=== PATIENT | female | born 1950 | race American Indian/Alaskan Native ===

== ENCOUNTER → 2024-10-27 | Outpatient (CLI) | payer MEDICARE, SELFPAY ==
[2024-10-27 12:47] LABS: Collection Type, Urine Clean Catch
[2024-10-27 13:54] LABS: Basophils # (Auto) 0.1 Thou/mm3 (0.0-0.2); Basophils % (Auto) 1 % (0-2.5); Eosinophils # (Auto) 0.3 Thou/mm3 (0.0-0.5); Eosinophils % (Auto) 4 % (0-10); Hematocrit 42.2 % (36.0-46.0); Hemoglobin 14.2 g/dL (12.0-16.0); Immature Granulocytes % (Auto) 0 % (0-0); Immature Granulocytes Auto 0.03 Thou/mm3 (0.00-0.00); Lymphocytes # (Auto) 1.9 Thou/mm3 (1.0-4.8); Lymphocytes % (Auto) 24 % (10-50); Mean Corpuscular HGB Conc 33.6 g/dl (31.0-37.0); Mean Corpuscular Hemoglobin 30.7 pg (25.0-35.0); Mean Corpuscular Volume 91 fL (80-100); Monocytes # (Auto) 0.8 Thou/mm3 (0.0-0.8); Monocytes % (Auto) 10 % (0-12); Neutrophils # (Auto) 4.8 Thou/mm3 (1.8-7.7); Neutrophils % (Auto) 60 % (37-80); Nucleated Red Blood Cell % 0 /100 WBC (0); Platelet Count 214 Thou/mm3 (140-440); RDW Standard Deviation 47.1 fL (36.4-46.3); Red Blood Count 4.63 Miln/mm3 (4.00-5.20); White Blood Count 7.9 Thou/mm3 (3.6-11.0)
[2024-10-27 14:06] LABS: Follicle Stimulating Hormone 38.64 mIU/mL (See Note); Vitamin B12 328 pg/mL (211-911); Vitamin D 25 Hydroxy Total 26.3 ng/mL (7.3-40.2)
[2024-10-27 14:19] LABS: Alanine Aminotransferase 34 U/L (10-49); Albumin, Serum 4.2 gm/dL (3.4-4.8); Albumin/Globulin Ratio 1.6 (1.2-2.2); Alkaline Phosphatase 111 U/L (46-116); Anion Gap 7 (7-16); Aspartate Amino Transferase 31 U/L (0-34); BUN/Creatinine Ratio 31 Ratio (12-20); Bilirubin,Total 0.9 mg/dL (0.3-1.2); Blood Urea Nitrogen 22 mg/dL (9-23); Calcium 8.9 mg/dL (8.3-10.6); Calcium (Corrected) 8.9 mg/dL (8.5-10.1); Carbon Dioxide 24.8 mMol/L (20.0-31.0); Cardiac Risk Estimate 4.3 RATIO (3.7-5.6); Chloride 109 mMol/L (98-107); Cholesterol 198 mg/dL (132-200); Creatinine (Component) 0.7 mg/dL (0.6-1.3); Globulin 2.7 gm/dL (2.3-3.5); Glucose 100 mg/dL (74-106); HDL Cholesterol 46 mg/dL (40-60); LDL Cholesterol,Calculated 119 mg/dL (0-130); Osmolality,Calculated 284 (275-295); Potassium 4.2 mMol/L (3.4-5.1); Sodium 141 mMol/L (136-145); Thyroid Stimulating Hormone 2.08 uIU/mL (0.55-4.78); Total Protein 6.9 gm/dL (5.7-8.2); Triglycerides 165 mg/dL (30-150); Uric Acid 5.6 mg/dL (3.1-7.8); eGFR > 60 See Note
[2024-10-27 14:52] LABS: Bilirubin,Urine Negative (Negative); Blood,Urine Negative (Negative); Clarity,Urine Clear (Clear/Hazy); Color,Urine Lt-Yellow (Lt Yel-Yel); Glucose, Urine Negative (Negative); Ketones,Urine Negative (Negative); Leukocyte Esterase,Urine Negative (Negative); Nitrite,Urine Negative (Negative); PH,Urine 6.5 (5.0-7.0); Protein,Urine 1+ (Neg - Trace); RBC,Urine 1 /hpf (0-3); Specific Gravity,Urine 1.019 (1.001-1.035); Squamous Epithelial Cell,Urine 3 /hpf (0-5); Urobilinogen,Urine Negative mg/dL (0.0-1.0); WBC,Urine 1 /hpf (0-5)
[2024-10-27 15:06] LABS: Glucose Estimated Average 105 mg/dL (80-131); Hemoglobin A1C 5.3 % Hgb (4.8-6.0)
== END | disposition home or self-care (01) ==
LOC: COPL 11:33
PROVIDERS: PCP Internal Medicine; Referring Provider Internal Medicine; Visit Provider Internal Medicine
DX: Z00.00 Encounter for general adult medical examination without abnormal findings (principal); D51.9 Vitamin B12 deficiency anemia, unspecified; E55.9 Vitamin D deficiency, unspecified; E78.5 Hyperlipidemia, unspecified; I10 Essential (primary) hypertension
CPT/HCPCS: 36415; 80053; 80061; 81001; 82306; 82607; 83001; 83002; 83036; 84144; 84443; 84550; 85025

== ENCOUNTER 2024-11-25 20:38 | Inpatient (IN) | payer MEDICARE, SELFPAY ==
[2024-11-25 20:40] VITALS: BMI 38.8
[2024-11-25 21:02] VITALS: BP 186/116; PULSE 120; RESP 18; TEMP 37.1; O2SAT 96
--- NOTE | 2024-11-25 21:11 | PD.EDRME ---
Rapid Medical Screening Exam RME Arrival date/time: 11/25/24 20:38 This is a case of 74 year old female who came in with abdominal pain nausea vomiting diarrhea and blood in stool Chief Complaint: Nausea/Vomiting/Diarrhea Time Seen by Provider: 11/25/24 21:08 Vital signs: Vital Signs Temperature 98.7 F 11/25/24 21:02 Pulse Rate 120 H 11/25/24 21:02 Respiratory Rate 18 11/25/24 21:02 Blood Pressure 186/116 H 11/25/24 21:02 Pulse Oximetry (%) 96 11/25/24 21:02 Oxygen Delivery Method Room Air 11/25/24 21:02
[2024-11-25 21:55] LABS: Collection Type, Urine Clean Catch
[2024-11-25 22:07] LABS: Basophils # (Auto) 0.1 Thou/mm3 (0.0-0.2); Basophils % (Auto) 1 % (0-2.5); Eosinophils # (Auto) 0.4 Thou/mm3 (0.0-0.5); Eosinophils % (Auto) 4 % (0-10); Hematocrit 38.4 % (36.0-46.0); Hemoglobin 13.4 g/dL (12.0-16.0); Immature Granulocytes % (Auto) 0 % (0-0); Immature Granulocytes Auto 0.03 Thou/mm3 (0.00-0.00); Lymphocytes # (Auto) 2.4 Thou/mm3 (1.0-4.8); Lymphocytes % (Auto) 22 % (10-50); Mean Corpuscular HGB Conc 34.9 g/dl (31.0-37.0); Mean Corpuscular Hemoglobin 30.7 pg (25.0-35.0); Mean Corpuscular Volume 88 fL (80-100); Monocytes % (Auto) 10 % (0-12); Neutrophils # (Auto) 6.9 Thou/mm3 (1.8-7.7); Neutrophils % (Auto) 64 % (37-80); Nucleated Red Blood Cell % 0 /100 WBC (0); Platelet Count 207 Thou/mm3 (140-440); RDW Standard Deviation 44.4 fL (36.4-46.3); Red Blood Count 4.37 Miln/mm3 (4.00-5.20); White Blood Count 10.8 Thou/mm3 (3.6-11.0)
[2024-11-25 22:18] LABS: Bilirubin,Urine Negative (Negative); Blood,Urine 1+ (Negative); Calcium Oxalate Crystals,Urine 4+; Clarity,Urine Turbid (Clear/Hazy); Color,Urine Yellow (Lt Yel-Yel); Glucose, Urine Negative (Negative); Hyaline Casts,Urine 1 /hpf (0-1); Ketones,Urine 1+ (Negative); Leukocyte Esterase,Urine Positive (Negative); Nitrite,Urine Negative (Negative); Protein,Urine 1+ (Neg - Trace); RBC,Urine 1 /hpf (0-3); Specific Gravity,Urine 1.032 (1.001-1.035); Squamous Epithelial Cell,Urine 9 /hpf (0-5); WBC,Urine 3 /hpf (0-5)
[2024-11-25 22:20] LABS: Alanine Aminotransferase 40 U/L (10-49); Albumin, Serum 4.2 gm/dL (3.4-4.8); Albumin/Globulin Ratio 1.6 (1.2-2.2); Alkaline Phosphatase 144 U/L (46-116); Anion Gap 13 (7-16); Aspartate Amino Transferase 31 U/L (0-34); BUN/Creatinine Ratio 19 Ratio (12-20); Bilirubin,Total 0.4 mg/dL (0.3-1.2); Blood Urea Nitrogen 27 mg/dL (9-23); Calcium 9.5 mg/dL (8.3-10.6); Calcium (Corrected) 9.5 mg/dL (8.5-10.1); Carbon Dioxide 20.8 mMol/L (20.0-31.0); Chloride 106 mMol/L (98-107); Creatinine (Component) 1.4 mg/dL (0.6-1.3); Estimated Creatinine Clearance 36.4 mL/min (>60); Globulin 2.7 gm/dL (2.3-3.5); Glucose 112 mg/dL (74-106); Lipase 39 U/L (12-53); Osmolality,Calculated 285 (275-295); Potassium 4.2 mMol/L (3.4-5.1); Sodium 140 mMol/L (136-145); Total Protein 6.9 gm/dL (5.7-8.2); eGFR 40 See Note
[2024-11-26] VITALS (12 sets, daily range): BP systolic 91–189; BP diastolic 51–101; PULSE 85–115; RESP 14–19; TEMP 36.4–37.1; O2SAT 95–99
--- NOTE | 2024-11-26 00:57 | EDNOTE_ITS ---
Nausea/Vomit./Diarrhea-RME/HPI General Chief complaint: Nausea/Vomiting/Diarrhea Stated complaint: DIARRHEA WITH BLOOD X4 EPISODES Time Seen by Provider: 11/25/24 21:08 Arrival date/time: 11/25/24 20:38 Limitations: no limitations RME / HPI RME / HPI Narrative: 11/25/24 20:38 This is a case of 74 year old female who came in with abdominal pain nausea vomiting diarrhea and blood in stool Dr. Urias's Main ED Evaluation: 74yo female with a history of DM, HTN, HLD presents to the ED for a chief complaint of rectal bleeding. Patient states she started having bright rectal bleeding at 1700, reporting she's had 6 episodes. She denies any fever, chills, N/V, abdominal pain, back pain or any other associated symptoms. Denies any history of similar symptmos. Denies any familial history of colon CA. She denies taking any Motrin or Aspirin. She has had a routine colonoscopy in the past. NKA. Related Data Allergies Allergy/AdvReac Type Severity Reaction Status Date / Time No Known Allergies Allergy Unknown Uncoded 11/25/24 20:40 Review of Systems Review of Systems Systems Reviewed: All systems reviewed, normal except as documented Past Medical History Past Medical History CARDIAC: Positive Hypertension; Negative Cardiac Disorders, Myocardial Infarction, Cardiac Arrhythmia, Atrial Fibrillation, Angina, Heart Murmur, Coronary Artery Disease, Atherosclerotic Heart Disease, Peripheral Vascular Disease, Hypercholesterolemia, Aneurysm, Congestive Heart Failure, Congenital Heart Disease, Valvular Heart Disease, Rheumatic Fever, Cardiomyopathy, Edema, Pericarditis, Cellulitis, Deep Vein Thrombosis, Hypotension or Varicose Veins RESPIRATORY: Negative Chronic Obstructive Pulmonary Disease (COPD) GENITOURINARY: Negative Renal Disease ENDOCRINE: Negative Diabetes Mellitus Type 1 or Diabetes Mellitus Type 2 Surgical History SURGICAL: Negative Pacemaker Social History SMOKING STATUS: Former smoker ED Exam General Limitations: Present no limitations General appearance: Present alert, in no apparent distress and other (overweight) Head Head exam: Present atraumatic Eye Eye exam: Present normal appearance, PERRL and EOMI ENT ENT exam: Present normal exam, normal oropharynx and mucous membranes moist Neck Neck exam: Present normal inspection, full ROM and trachea midline Chest Chest inspection: Present normal inspection and symmetric chest wall rise Respiratory Respiratory exam: Present normal lung sounds bilaterally Cardiovascular Cardiovascular exam: Present normal rhythm, tachycardia and normal heart sounds Abdominal Exam Abdominal exam: Present soft; Absent distention or tenderness Rectal Exam Rectal exam: Present heme (+) stool (with bright red blood) Extremities Exam Extremities exam: Present normal inspection and full ROM Back Exam Back exam: Present normal inspection and full ROM; Absent CVA tenderness (R) or CVA tenderness (L) Neurological Exam Neurological exam: Present alert, oriented X3 and CN II-XII intact Psychiatric Psychiatric exam: Present normal affect and normal mood Skin Skin exam: Present warm, dry, intact and normal color; Absent other (jaundice) Course Quality Measures none Orders Category Date Time Status IV [Insert IV] STAT Care 11/26/24 01:14 Active CBC Stat Lab 11/25/24 21:22 Completed Comprehensive Metabolic Panel Stat Lab 11/25/24 21:22 Completed Lipase Stat Lab 11/25/24 21:22 Completed PT [Prothrombin Time with INR] Stat Lab 11/26/24 01:19 Completed PTT [Partial Thromboplastin Time] Stat Lab 11/26/24 01:19 Completed Type and Screen Stat Lab 11/26/24 01:19 Completed Urinalysis Stat Lab 11/25/24 21:33 Completed Vital Signs Vital signs: Vital Signs Temperature 98.7 F 11/25/24 21:02 Pulse Rate 120 H 11/25/24 21:02 Respiratory Rate 18 11/25/24 21:02 Blood Pressure 186/116 H 11/25/24 21:02 Pulse Oximetry (%) 96 11/25/24 21:02 Oxygen Delivery Method Room Air 11/25/24 21:02 Nausea/Vomiting/Diarrhea Patient data External records reviewed:: [facility] previous records (Per chart review, patient has no previous ED visits or admissions to this facility.) Clinical information provided by:: patient Social determinants that could affect healthcare access:: none Patient has the following chronic illnesses:: DM, HTN, HLD How is presenting disease/condition affected by chronic disease/condition?: uneffected by Evaluation data The following diagnostics were reviewed and interpreted by me:: lab results Lab and/or radiology exams considered but not ordered:: none Interpretation Summary: CBC is normal, Creatinine 1.4, BUN 27, Lipase is normal, UA is positive for a UTI, according to my interpretation. Medications / Prescriptions Medications / Prescriptions considered but not ordered:: none Medication administrations:: see above, if any Consultations Consultation(s) initiated? (list below): Yes Consultation #1 (Physician, Specialty, Details): Discussed case with attending Dr. Pulliam from Hospitalist service regarding admission. Discussed patients ED course, exam findings, labs, and radiology results. The Hospitalist agrees to accept the patient for admission. Time: 02:58 Diagnosis Nausea Differential Diagnosis: other (diverticulitis, lower GI bleed, dehydration) Most likely diagnosis given after review of the tests above:: lower GI bleed, acute renal failure Admission Indicated Admission indicated?: indicated Admission Request Was there a request for admission?: Yes Admission Attestation Admission request attestation: Discussed case with [] from Hospitalist service regarding admission. Discussed patients ED course, exam findings, labs, and radiology results. The Hospitalist [agrees,declines] to accept the patient for admission. Disposition Plan Disposition Plan: Admit Discharge Plan Plan Patient Disposition: Admit Acute Care w/in Hospital Patient condition on transfer: Stable Prescriptions/Referrals Referrals: No Primary/Family,Physician [Primary Care Provider] - In 1 week Problem List Clinical Impression: Lower GI bleed, Acute renal failure (ARF) Patient/Caregiver Discharge Instructions Print Language: Chadian Stand Alone Forms: Silvana Award Info., Patient Portal Info Letter
[2024-11-26 01:55] LABS: INR 1.1 (0.9-1.3); Partial Thromboplastin Time 27.7 Seconds (22.0-36.0); Prothrombin Time 11.8 Seconds (9.0-12.2)
--- NOTE | 2024-11-26 03:28 | ESHP_ITS ---
<Statement entered by Michael Pulliam MD - 11/26/24 06:40> I have discussed and was present for the essential components of the history, physical examination, diagnosis, and treatment plan with the resident. I agree with the patient's care as documented by the resident and amended herein by me. Michael Pulliam MD FACP. Documentation for date of: 11/26/24 HPI History of Present Illness Chief complaint: Lower GI Bleed History of present illness: Ms. Flores is a 74-year-old female with past medical history of osteoarthritis on diclofenac, untreated diabetes, untreated hypertension who presented to [facility] with a chief complaint of bright red blood per rectum. Patient states that today evening she began to have bowel movements that were soft and with significant amount of blood in the toilet bowl. She states that she had 4 episodes at home at which point she reached out to her primary care physician Dr. Quach who suggested that the patient come to the emergency department. Patient states that on the way to the emergency department she did have some lightheadedness but did not pass out or develop shortness of breath. Patient denies any ingestion of undercooked meats, abdominal pain, nausea vomiting, any family history of colon cancer, unexpected weight loss, chest pain, headache, or any other associated symptoms. She has experienced early satiety and decreased appetite but has not had significant weight loss. She endorses taking diclofenac 1-2 times daily for arthritis and has recently been prescribed vitamin D for mentation by her PCP. Patient has remote history of colonoscopy more than 10 years prior at which point she was found to have a single diverticuli but no history of polyps. Patient denies any smoking history or history of GERD. 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 Her younger son lives with her and she is able to perform activities of daily life without assistance. She denies any alcohol or tobacco use. Allergies: No known drug allergies Family history: No relevant past family medical history ED vitals: BP 186/116, pulse 120, RR 18, temp afebrile, O2 sat 96 on room air ED labs: WBC 10.8, hemoglobin 13.4, BUN 27, creatinine 1.4, GFR 40, glucose 112, alk phos 144. U/A: Turbid, 1+ protein, 1+ ketones, 1+ blood and 4+ calcium oxalate crystals. ED management: None Ed Imaging: None Patient will be admitted to observation on med/tele for lower GI bleed and initiated on GoLytely prep for colonoscopy. Review of Systems Review of Systems Systems Reviewed: All systems reviewed, normal except as documented Exam Vital Signs Temp Pulse Resp BP Pulse Ox O2 Del Method 98.6 F 85 14 155/92 H 99 Room Air 11/26/24 03:23 11/26/24 03:23 11/26/24 03:23 11/26/24 03:23 11/26/24 03:11/26/24 03:23 Narrative Exam GENERAL: Alert and oriented x 3. No acute distress. Well-nourished. EYES: EOMI. Anicteric. HEENT: Moist mucous membranes. No scleral icterus. No cervical lymphadenopathy. LUNGS: Clear to auscultation bilaterally. No accessory muscle use. CARDIOVASCULAR: Regular rate and rhythm. No murmur. No JVD. ABDOMEN: Soft, non-tender and non-distended. No palpable masses. EXTREMITIES: All 4 extremeties intact. No edema. Nontender. SKIN: No rashes or lesions. Warm. NEUROLOGIC: No focal neurological deficits. CN II-XII grossly intact, but not individually tested. PSYCHIATRIC: Cooperative. Appropriate mood and affect. Results: Labs 11/25/24 21:22 11/25/24 21:22 Labs: Short CBC 11/25/24 Range/Units 21:22 WBC 10.8 (3.6-11.0) Thou/mm3 Hgb 13.4 (12.0-16.0) g/dL Hct 38.4 (36.0-46.0) % Plt Count 207 (140-440) Thou/mm3 BMP 11/25/24 21:22 Sodium 140 Potassium 4.2 Chloride 106 Carbon Dioxide 20.8 BUN 27 H Creatinine 1.4 H Glucose 112 H Calcium 9.5 Liver Function 11/25/24 Range/Units 21:22 Total Bilirubin 0.4 (0.3-1.2) mg/dL AST 31 (0-34) U/L ALT 40 (10-49) U/L Alkaline Phosphatase 144 H (46-116) U/L Albumin 4.2 (3.4-4.8) gm/dL Urine 11/25/24 Range/Units 21:33 Urine Color Yellow (Lt Yel-Yel) Urine Clarity Turbid A (Clear/Hazy) Urine pH 6.0 (5.0-7.0) Ur Specific [place] 1.032 (1.001-1.035) Urine Protein 1+ A (Neg - Trace) Urine Glucose (UA) Negative (Negative) Quality Measures Quality Measures none Advance care planning discussed with:: patient Medications Home Medications and Allergies Allergies Allergy/AdvReac Type Severity Reaction Status Date / Time No Known Allergies Allergy Unknown Uncoded 11/25/24 20:40 Visit Medications Acetaminophen (Acetaminophen 325 Mg Tablet) 650 mg PO Q6H PRN PRN Reason: Fever >101.5 Stop: 12/26/24 03:22 Acetaminophen (Acetaminophen 325 Mg Tablet) 650 mg PO Q6H PRN PRN Reason: PAIN SCALE 1-3 (mild Stop: 12/26/24 03:22 Hydrocodone Bitart/Acetaminophen (Hydrocodone/Apap 5/325 Tablet) 1 tab PO Q4HR PRN PRN Reason: Pain Scale 4-10 Stop: 12/01/24 03:22 Dextrose (Dextrose 50%-Water Inj 50 Ml Syringe) 25 ml IV Q15MIN PRN PRN Reason: BG 50-70 responsive npo pt Stop: 12/26/24 03:26 Dextrose (Dextrose 50%-Water Inj 50 Ml Syringe) 50 ml IV Q15MIN PRN PRN Reason: BG <50 OR BG <70 & pt unresponsive Stop: 12/26/24 03:26 Glucagon (Glucagon Inj 1 Mg Vial) 1 mg IM Q15MIN PRN PRN Reason: BG <70, and no IV access Lactated Ringer's (Lactated Ringers) 1,000 mls @ 75 mls/hr IV .[id number] MALIK Stop: 12/26/24 03:29 Insulin Human Lispro (Insulin Lispro (Admelog) 1 Unit/0.01 Ml Unit) 0 unit SC Q6H MALIK; Protocol Stop: 12/26/24 03:29 Ondansetron HCl (Ondansetron Inj 2 Mg/Ml Inj 2 Ml) 4 mg IV Q6H PRN; Protocol PRN Reason: NAUSEA OR VOMITING Stop: 12/26/24 03:22 Pantoprazole Sodium (Pantoprazole Inj 40 Mg Vial) 40 mg IVP QDAY MALIK Stop: 12/26/24 08:59 Polyethylene Glycol/Electrolytes ([place]/Nahco3/Kenny/Peg (Golytely) 4,000 Ml Btl) 4,000 ml PO X1 ONE Stop: 11/26/24 03:24 Assessment & Plan Plan #Lower GI bleed #Bright red blood per rectum Patient has a history of using diclofenac daily for osteoarthritis No history of straining or difficulty with bowel movements. No previous history of internal hemorrhoids Remote history of colonoscopy more than 10 years prior No alarm symptoms: Mild early satiety Consult GI, initiate the patient on GoLytely prep Consult Dr. Quach who is patient's PCP Light IV fluid resuscitation due to LLOYD and GoLytely prep with lactated Ringer's SCDs for DVT prophylaxis Hold NSAIDs in the setting of GI bleed #LLOYD Likely prerenal in the setting of GI losses Light IV fluid hydration with LR at 75 cc an hour. #Type 2 diabetes Previous history of being prescribed insulin lancets on EMR Untreated currently so we will order A1c and initiate the patient on sliding scale insulin every 6 hours #Hypertension History of hypertension that is currently untreated Hydralazine as needed for systolic blood pressure over 180 Health Maintenance: DVT prophylaxis: SCDs GI prophylaxis: Protonix 40 IV daily Diet: Clear liquid diet Ambrose: Not indicated Lines: Peripheral IVs Supplemental O2: None CODE STATUS: Full code Disposition: Admitted to med/tele for management of lower GI bleed. Plan of care discussed with supervising attending Dr. Heraclio Dias M.D. PGY-3
--- NOTE | 2024-11-26 03:52 | PC.NURSE ---
Called Environmental Health Physician for Go-Katrinately. Medication not stocked in ER pyxis. Per House Sup to bring down medication to ER.
[2024-11-26] MEDS: RINGERS LACTATED 1000 ML 1,000 ML 75 ML IV ×2 (03:57→18:11)
[2024-11-26 04:38] LABS: Basophils # (Auto) 0.1 Thou/mm3 (0.0-0.2); Basophils % (Auto) 1 % (0-2.5); Eosinophils # (Auto) 0.3 Thou/mm3 (0.0-0.5); Eosinophils % (Auto) 4 % (0-10); Hematocrit 33.8 % (36.0-46.0); Hemoglobin 11.8 g/dL (12.0-16.0); Immature Granulocytes % (Auto) 0 % (0-0); Immature Granulocytes Auto 0.02 Thou/mm3 (0.00-0.00); Lymphocytes # (Auto) 2.5 Thou/mm3 (1.0-4.8); Lymphocytes % (Auto) 27 % (10-50); Mean Corpuscular HGB Conc 34.9 g/dl (31.0-37.0); Mean Corpuscular Hemoglobin 30.5 pg (25.0-35.0); Mean Corpuscular Volume 87 fL (80-100); Monocytes # (Auto) 0.9 Thou/mm3 (0.0-0.8); Monocytes % (Auto) 10 % (0-12); Neutrophils # (Auto) 5.4 Thou/mm3 (1.8-7.7); Neutrophils % (Auto) 59 % (37-80); Nucleated Red Blood Cell % 0 /100 WBC (0); Platelet Count 178 Thou/mm3 (140-440); RDW Standard Deviation 44.9 fL (36.4-46.3); Red Blood Count 3.87 Miln/mm3 (4.00-5.20); White Blood Count 9.2 Thou/mm3 (3.6-11.0)
[2024-11-26 04:51] LABS: Glucose Estimated Average 103 mg/dL (80-131); Hemoglobin A1C 5.2 % Hgb (4.8-6.0)
[2024-11-26 05:06] LABS: Alanine Aminotransferase 33 U/L (10-49); Albumin, Serum 3.8 gm/dL (3.4-4.8); Albumin/Globulin Ratio 1.6 (1.2-2.2); Alkaline Phosphatase 115 U/L (46-116); Anion Gap 10 (7-16); Aspartate Amino Transferase 23 U/L (0-34); BUN/Creatinine Ratio 34 Ratio (12-20); Bilirubin,Total 0.5 mg/dL (0.3-1.2); Blood Urea Nitrogen 31 mg/dL (9-23); Calcium 8.4 mg/dL (8.3-10.6); Calcium (Corrected) 8.6 mg/dL (8.5-10.1); Carbon Dioxide 21.9 mMol/L (20.0-31.0); Chloride 112 mMol/L (98-107); Creatinine (Component) 0.9 mg/dL (0.6-1.3); Estimated Creatinine Clearance 56.6 mL/min (>60); Globulin 2.4 gm/dL (2.3-3.5); Glucose 120 mg/dL (74-106); Magnesium 1.9 mg/dL (1.6-2.6); Osmolality,Calculated 294 (275-295); Phosphorous 3.6 mg/dL (2.4-5.1); Potassium 3.8 mMol/L (3.4-5.1); Sodium 144 mMol/L (136-145); Thyroid Stimulating Hormone 2.67 uIU/mL (0.55-4.78); Total Protein 6.2 gm/dL (5.7-8.2); eGFR > 60 See Note
[2024-11-26] MEDS: NA SU/NAHCO3/KC/PEG (Golytely) 4,000 ML BTL 4000 ML PO (05:15)
[2024-11-26] MEDS: RINGERS LACTATED 1000 ML 1,000 ML 999 ML IV (07:32)
--- NOTE | 2024-11-26 07:54 | PC.NURSE ---
After handoff report from [facility] nurse, I assisted nurse to help pateint back to bed after using the BSC. She was found on the commode with her eyes closed and moving her head as if she was light headed. She stated she felt dizzy and weak. WIth assistance of Nurse patient was help back to bed. VS were taken which were found to be 91/51, 94% RA, 99, 24. In the commode she had approx 800 ml of brown red stool with solid fecal material. The corner of the room was covered in blood from patient's attempt to use the restroom earlier. Pt now in bed, denies any abdominal pain, n/v. Dr. Quach was called immedately to notify regarding patient's current status. New orders received for bolus and upgrade to telemetry floor. 0745 Dr. Quach at bedside speaking with patient and assessing patient, at this time patient's bp is stable. pt reported no dizziness at this time.
[2024-11-26] MEDS: PANTOPRAZOLE INJ 40 MG VIAL IVP ×2 (08:05→21:53)
[2024-11-26 12:11] LABS: Hematocrit 29.1 % (36.0-46.0); Hemoglobin 10.3 g/dL (12.0-16.0)
--- NOTE | 2024-11-26 13:17 | ESPR_ITS ---
Documentation for date of: 11/26/24 Subjective Subjective Interval history: 74 y/o F with PMHx significant for osteoarthritis on diclofenac, untreated diabetes, untreated hypertension who presented to [facility] with a chief complaint of bright red blood per rectum. Patient states she began to have bowel movements that were soft and with significant amount of blood in the toilet bowl. Patient states that on the way to the emergency department she did have some lightheadedness but did not pass out or develop shortness of breath. Patient denies any ingestion of undercooked meats, abdominal pain, nausea vomiting, any family history of colon cancer, unexpected weight loss, chest pain, headache, or any other associated symptoms. She has experienced early satiety and decreased appetite but has not had significant weight loss. She endorses taking diclofenac 1-2 times daily for arthritis and has recently been prescribed vitamin D for mentation. Patient has remote history of colonoscopy more than 10 years prior at which point she was found to have a single diverticuli but no history of polyps. Patient denies any smoking history or history of GERD. ED vitals: BP 186/116, pulse 120, RR 18, temp afebrile, O2 sat 96 on room air ED labs: WBC 10.8, hemoglobin 13.4, BUN 27, creatinine 1.4, GFR 40, glucose 112, alk phos 144. U/A: Turbid, 1+ protein, 1+ ketones, 1+ blood and 4+ calcium oxalate crystals. ED management: None Ed Imaging: None Patient seen and examined at bedside, resting comfortably. Patient reports recently had significant bowel movements without bloody stool, confirmed by nurse. Denies fevers, chills, chest pain, shortness of breath, abdominal pain, fatigue. WBC 10.2, hemoglobin downtrending from 11.8-10.3. Sodium 144, potassium 3.8, bicarb 21.9, BUN 31, creatinine 0.9, EGFR greater than 60. Gave patient 1 L fluid bolus, will closely monitor hemoglobin. Patient taking GoLytely prep anticipation colonoscopy. GI consulted. Took over care from hospitalist team. Exam Vital Signs Temp Pulse Resp BP Pulse Ox O2 Del Method O2 Flow Rate 97.6 F 99 18 155/97 H 99 Nasal Cannula 2 11/26/24 11:42 11/26/24 12:00 11/26/24 11:42 11/26/24 11:42 11/26/24 11:42 11/26/24 11:42 11/26/24 11:42 Narrative Exam PE: Gen: Well-developed and well-nourished. HEENT: NCAT, PERRLA, EOMI, MMM, anicteric conjunctivae. CVS: normal S1 and S2. RRR. No M/R/G. Resp: CTA B/L. No rhonchi, rales, crackles or wheezing. Abd: soft, non-tender, non-distended. MSK: Good ROM in BUE & BLE. No edema or rash. Neuro: CN II-XII grossly intact. Strength 5/5 in BUE & BLE. Alert and oriented x3. Psych: appropriate mood and affect. Objective Labs 11/26/24 16:27 11/26/24 04:28 Labs: Laboratory Results - last 24 hr 11/25/24 11/25/24 11/26/24 21:22 21:33 01:19 WBC 10.8 RBC 4.37 Hgb 13.4 Hct 38.4 MCV 88 MCH 30.7 MCHC 34.9 RDW Std Deviation 44.4 Plt Count 207 Neut % (Auto) 64 Lymph % (Auto) 22 [place] % (Auto) 10 Eos % (Auto) 4 Baso % (Auto) 1 Neut # (Auto) 6.9 Lymph # (Auto) 2.4 [place] # (Auto) 1.0 H Eos # (Auto) 0.4 Baso # (Auto) 0.1 Immature Gran # (Auto) 0.03 H Absolute Nucleated RBC 0.00 Immature Gran % 0 Nucleated RBC % 0 PT 11.8 INR 1.1 APTT 27.7 Sodium 140 Potassium 4.2 Chloride 106 Carbon Dioxide 20.8 Anion Gap 13 BUN 27 H Creatinine 1.4 H Estim Creat Clear Calc 36.4 L eGFR 40 L BUN/Creatinine Ratio [address] Glu mg/dL Hemoglobin A1c Calculated Osmolality 285 Calcium 9.5 Corrected Calcium 9.5 Phosphorus Magnesium Total Bilirubin 0.4 AST 31 ALT 40 Alkaline Phosphatase 144 H Total Protein 6.9 Albumin 4.2 Globulin 2.7 Albumin/Globulin Ratio 1.6 Lipase 39 TSH Ur Collection Type Clean Catch Urine Color Yellow Urine Clarity Turbid A Urine pH 6.0 Ur Specific [place] 1.032 Urine Protein 1+ A Urine Glucose (UA) Negative Urine Ketones 1+ A Urine Blood 1+ A Urine Nitrite Negative Urine Bilirubin Negative Urine Urobilinogen (Auto) 2.0 Ur Leukocyte Esterase Positive Urine RBC 1 Urine WBC 3 Ur Squamous Epith Cells 9 H Calcium Oxalate Crystal 4+ A Urine Bacteria None Hyaline Casts 1 Blood Type O Positive Antibody Screen NEGATIVE Blood Bank Wristband ID Yes 11/26/24 11/26/24 04:28 11:49 WBC 9.2 RBC 3.87 L Hgb 11.8 L 10.3 L Hct 33.8 L 29.1 L MCV 87 MCH 30.5 MCHC 34.9 RDW Std Deviation 44.9 Plt Count 178 Neut % (Auto) 59 Lymph % (Auto) 27 [place] % (Auto) 10 Eos % (Auto) 4 Baso % (Auto) 1 Neut # (Auto) 5.4 Lymph # (Auto) 2.5 [place] # (Auto) 0.9 H Eos # (Auto) 0.3 Baso # (Auto) 0.1 Immature Gran # (Auto) 0.02 H Absolute Nucleated RBC 0.00 Immature Gran % 0 Nucleated RBC % 0 PT INR APTT Sodium 144 Potassium 3.8 Chloride 112 H Carbon Dioxide 21.9 Anion Gap 10 BUN 31 H Creatinine 0.9 D Estim Creat Clear Calc 56.6 L eGFR > 60 BUN/Creatinine Ratio 34 H Glucose [address] Glu mg/dL 103 Hemoglobin A1c 5.2 Calculated Osmolality 294 Calcium 8.4 Corrected Calcium 8.6 Phosphorus 3.6 Magnesium 1.9 Total Bilirubin 0.5 AST 23 ALT 33 Alkaline Phosphatase 115 D Total Protein 6.2 Albumin 3.8 Globulin 2.4 Albumin/Globulin Ratio 1.6 Lipase TSH 2.67 Ur Collection Type Urine Color Urine Clarity Urine pH Ur Specific [place] Urine Protein Urine Glucose (UA) Urine Ketones Urine Blood Urine Nitrite Urine Bilirubin Urine Urobilinogen (Auto) Ur Leukocyte Esterase Urine RBC Urine WBC Ur Squamous Epith Cells Calcium Oxalate Crystal Urine Bacteria Hyaline Casts Blood Type Antibody Screen Blood Bank Wristband ID Quality Measures Quality Measures VTE prophylaxis Advance care planning discussed with:: patient Assessment & Plan Assessment Current Active Medications: Generic Name Dose Route Start Last Admin Trade Name Freq PRN Reason Stop Dose Admin Acetaminophen 650 mg 11/26/24 03:23 Acetaminophen 325 Mg Tablet PO 12/26/24 03:22 Q6H PRN Fever >101.5 Acetaminophen 650 mg 11/26/24 03:23 Acetaminophen 325 Mg Tablet PO 12/26/24 03:22 Q6H PRN PAIN SCALE 1-3 (mild Hydrocodone Bitart/Acetaminophen 1 tab 11/26/24 03:23 Hydrocodone/Apap 5/325 Tablet PO 12/01/24 03:22 Q4HR PRN Pain Scale 4-10 Dextrose 25 ml 11/26/24 03:27 Dextrose 50%-Water Inj 50 Ml Syringe IV 12/26/24 03:26 Q15MIN PRN BG 50-70 responsive npo pt Dextrose 50 ml 11/26/24 03:27 Dextrose 50%-Water Inj 50 Ml Syringe IV 12/26/24 03:26 Q15MIN PRN BG <50 OR BG <70 & pt unresponsive Glucagon 1 mg 11/26/24 03:27 Glucagon Inj 1 Mg Vial IM Q15MIN PRN BG <70, and no IV access Hydralazine HCl 10 mg 11/26/24 03:28 Hydralazine Inj 20 Mg/Ml Vial IV 12/26/24 03:29 Q6H PRN SBP > 180 Lactated Ringer's 1,000 mls @ 75 mls/hr 11/26/24 03:30 11/26/24 08:02 Lactated Ringers IV 12/26/24 03:29 75 mls/hr .[id number] MALIK Infusion Insulin Human Lispro 0 unit 11/26/24 03:30 11/26/24 09:59 Insulin Lispro (Admelog) 1 Unit/0.01 Ml Unit SC 12/26/24 03:29 Not Given Q6H [facility] Protocol Ondansetron HCl 4 mg 11/26/24 03:23 Ondansetron Inj 2 Mg/Ml Inj 2 Ml IV 12/26/24 03:22 Q6H PRN NAUSEA OR VOMITING Protocol Pantoprazole Sodium 40 mg 11/26/24 08:00 11/26/24 08:06 Pantoprazole Inj 40 Mg Vial IVP 12/26/24 07:59 Not Given BID MALIK Plan 74 y/o F with PMHx significant for osteoarthritis on diclofenac, untreated diabetes, untreated hypertension who presented to [facility] with a chief complaint of bright red blood per rectum #Lower GI bleed Patient presented with complaint of hematochezia. Patient has a history of using diclofenac daily for osteoarthritis. No history of straining or difficulty with bowel movements. No previous history of internal hemorrhoids. Remote history of colonoscopy more than 10 years prior. No alarm symptoms: Mild early satiety. -GI consulted, appreciate recommendations -GoLytely prep in anticipation of colonoscopy -IVF: Lactated Ringer's at 75 mL/h -SCDs for DVT prophylaxis -Hold NSAIDs in the setting of GI bleed #LLOYD Likely prerenal in the setting of GI losses -IVF as above #Hypertension History of hypertension that is currently untreated -Hydralazine as needed for systolic blood pressure over 180 DVT prophylaxis: SCDs GI prophylaxis: Protonix 40 IV daily Diet: Clear liquid diet Lines: Peripheral IVs CODE STATUS: Full code Plan of care discussed with attending Dr. Quach. Bairon Casillas MD PGY?1 Attending Provider Attestation/Addendum Patient seen and examined with resident physician Dr. Bueno. Note reviewed, agree with findings and recommendations. Patient currently seen in emergency department Admitted with bright red blood per rectum. Took over the care from hospitalist team. Dr. Peoples was consulted. Serial H&H, IV fluids, Protonix ordered. Suspect diverticular bleed
--- NOTE | 2024-11-26 14:56 | PD.RESPRO ---
Documentation for date of: 11/26/24 Exam Vital Signs Temp Pulse Resp BP Pulse Ox O2 Del Method O2 Flow Rate 97.6 F 99 18 155/97 H 99 Nasal Cannula 2 11/26/24 11:42 11/26/24 12:00 11/26/24 11:42 11/26/24 11:42 11/26/24 11:42 11/26/24 11:42 11/26/24 11:42 Objective Labs 11/26/24 11:49 11/26/24 04:28 Labs: Laboratory Results - last 24 hr 11/25/24 11/25/24 11/26/24 21:22 21:33 01:19 WBC 10.8 RBC 4.37 Hgb 13.4 Hct 38.4 MCV 88 MCH 30.7 MCHC 34.9 RDW Std Deviation 44.4 Plt Count 207 Neut % (Auto) 64 Lymph % (Auto) 22 [place] % (Auto) 10 Eos % (Auto) 4 Baso % (Auto) 1 Neut # (Auto) 6.9 Lymph # (Auto) 2.4 [place] # (Auto) 1.0 H Eos # (Auto) 0.4 Baso # (Auto) 0.1 Immature Gran # (Auto) 0.03 H Absolute Nucleated RBC 0.00 Immature Gran % 0 Nucleated RBC % 0 PT 11.8 INR 1.1 APTT 27.7 Sodium 140 Potassium 4.2 Chloride 106 Carbon Dioxide 20.8 Anion Gap 13 BUN 27 H Creatinine 1.4 H Estim Creat Clear Calc 36.4 L eGFR 40 L BUN/Creatinine Ratio [address] Glu mg/dL Hemoglobin A1c Calculated Osmolality 285 Calcium 9.5 Corrected Calcium 9.5 Phosphorus Magnesium Total Bilirubin 0.4 AST 31 ALT 40 Alkaline Phosphatase 144 H Total Protein 6.9 Albumin 4.2 Globulin 2.7 Albumin/Globulin Ratio 1.6 Lipase 39 TSH Ur Collection Type Clean Catch Urine Color Yellow Urine Clarity Turbid A Urine pH 6.0 Ur Specific [place] 1.032 Urine Protein 1+ A Urine Glucose (UA) Negative Urine Ketones 1+ A Urine Blood 1+ A Urine Nitrite Negative Urine Bilirubin Negative Urine Urobilinogen (Auto) 2.0 Ur Leukocyte Esterase Positive Urine RBC 1 Urine WBC 3 Ur Squamous Epith Cells 9 H Calcium Oxalate [place] 4+ A Urine Bacteria None Hyaline Casts 1 Blood Type O Positive Antibody Screen NEGATIVE Blood Bank Wristband ID Yes 11/26/24 11/26/24 04:28 11:49 WBC 9.2 RBC 3.87 L Hgb 11.8 L 10.3 L Hct 33.8 L 29.1 L MCV 87 MCH 30.5 MCHC 34.9 RDW Std Deviation 44.9 Plt Count 178 Neut % (Auto) 59 Lymph % (Auto) 27 [place] % (Auto) 10 Eos % (Auto) 4 Baso % (Auto) 1 Neut # (Auto) 5.4 Lymph # (Auto) 2.5 [place] # (Auto) 0.9 H Eos # (Auto) 0.3 Baso # (Auto) 0.1 Immature Gran # (Auto) 0.02 H Absolute Nucleated RBC 0.00 Immature Gran % 0 Nucleated RBC % 0 PT INR APTT Sodium 144 Potassium 3.8 Chloride 112 H Carbon Dioxide 21.9 Anion Gap 10 BUN 31 H Creatinine 0.9 D Estim Creat Clear Calc 56.6 L eGFR > 60 BUN/Creatinine Ratio 34 H Glucose [address] Glu mg/dL 103 Hemoglobin A1c 5.2 Calculated Osmolality 294 Calcium 8.4 Corrected Calcium 8.6 Phosphorus 3.6 Magnesium 1.9 Total Bilirubin 0.5 AST 23 ALT 33 Alkaline Phosphatase 115 D Total Protein 6.2 Albumin 3.8 Globulin 2.4 Albumin/Globulin Ratio 1.6 Lipase TSH 2.67 Ur Collection Type Urine Color Urine Clarity Urine pH Ur Specific [place] Urine Protein Urine Glucose (UA) Urine Ketones Urine Blood Urine Nitrite Urine Bilirubin Urine Urobilinogen (Auto) Ur Leukocyte Esterase Urine RBC Urine WBC Ur Squamous Epith Cells Calcium Oxalate [place] Urine Bacteria Hyaline Casts Blood Type Antibody Screen Blood Bank Wristband ID Quality Measures Quality Measures VTE prophylaxis Assessment & Plan Assessment Current Active Medications: Generic Name Dose Route Start Last Admin Trade Name Freq PRN Reason Stop Dose Admin Acetaminophen 650 mg 11/26/24 03:23 Acetaminophen 325 Mg Tablet PO 12/26/24 03:22 Q6H PRN Fever >101.5 Acetaminophen 650 mg 11/26/24 03:23 Acetaminophen 325 Mg Tablet PO 12/26/24 03:22 Q6H PRN PAIN SCALE 1-3 (mild Hydrocodone Bitart/Acetaminophen 1 tab 11/26/24 03:23 Hydrocodone/Apap 5/325 Tablet PO 12/01/24 03:22 Q4HR PRN Pain Scale 4-10 Dextrose 25 ml 11/26/24 03:27 Dextrose 50%-Water Inj 50 Ml Syringe IV 12/26/24 03:26 Q15MIN PRN BG 50-70 responsive npo pt Dextrose 50 ml 11/26/24 03:27 Dextrose 50%-Water Inj 50 Ml Syringe IV 12/26/24 03:26 Q15MIN PRN BG <50 OR BG <70 & pt unresponsive Glucagon 1 mg 11/26/24 03:27 Glucagon Inj 1 Mg Vial IM Q15MIN PRN BG <70, and no IV access Hydralazine HCl 10 mg 11/26/24 03:28 Hydralazine Inj 20 Mg/Ml Vial IV 12/26/24 03:29 Q6H PRN SBP > 180 Lactated Ringer's 1,000 mls @ 75 mls/hr 11/26/24 03:30 11/26/24 08:02 Lactated Ringers IV 12/26/24 03:29 75 mls/hr .[id number] MALIK Infusion Insulin Human Lispro 0 unit 11/26/24 03:30 11/26/24 09:59 Insulin Lispro (Admelog) 1 Unit/0.01 Ml Unit SC 12/26/24 03:29 Not Given Q6H MALIK Protocol Ondansetron HCl 4 mg 11/26/24 03:23 Ondansetron Inj 2 Mg/Ml Inj 2 Ml IV 12/26/24 03:22 Q6H PRN NAUSEA OR VOMITING Protocol Pantoprazole Sodium 40 mg 11/26/24 08:00 11/26/24 08:06 Pantoprazole Inj 40 Mg Vial IVP 12/26/24 07:59 Not Given BID MALIK
--- NOTE | 2024-11-26 14:56 | PD.RESCONSUL ---
HPI Data of Consult Requesting Physician: Michael Pulliam MD Admitting Provider: Michael Pulliam MD Attending Provider: Michael Pulliam MD Primary Care Provider: Physician No Primary/Family Consult Narrative Reason for consult: bleeding per rectum History of present illness: 74-year-old female with significant past medical history of hypertension, diabetes, osteoarthritis presented to the hospital with chief complaints of bleeding per rectum since 1 day. Patient is apparently normal 1 day back. On the day of admission, patient felt mild abdominal discomfort following which she had a bowel movement and noticed myrtle blood in the stools without any associated abdominal pain. Patient still staying at home and 2 hours later patient still had mild abdominal discomfort and again found to have 2 bloody bowel movements following which she called her PCP who recommended her to visit emergency department for further evaluation. Patient denies previous history of constipation, blood or blackish discoloration of stools, recent weight loss, family history of colon cancer. Endorsed that she had colonoscopy more than 10 years ago which showed diverticulosis without any other significant abnormality. Denies usage of blood thinners and endorsed that she is taking diclofenac twice a day for arthritis ED course: Vitals at the time of admission are significant for elevated blood pressure 186/116 mmHg. Also found to have 3 bloody bowel movements in the ED and patient also developed mild dizziness. Labs showed hemoglobin 13.4, BUN 27, creatinine 1.4. Social history: stopped smoking and alcohol 30 years ago. Denies any other drug abuse. Gastroenterology is consulted in view of bleeding per rectum. 11/26/2024: Patient still complaining of bloody bowel movements and is currently taking GoLytely in view of colonoscopy scheduled later in the day. Denies any abdominal discomfort or pain. cc:: cc: Michael Pulliam MD Review of Systems Review of Systems Systems Reviewed: All systems reviewed, normal except as documented Past Medical History Past Medical History CARDIAC: Positive Hypertension; Negative Cardiac Disorders, Myocardial Infarction, Cardiac Arrhythmia, Atrial Fibrillation, Angina, Heart Murmur, Coronary Artery Disease, Atherosclerotic Heart Disease, Peripheral Vascular Disease, Hypercholesterolemia, Aneurysm, Congestive Heart Failure, Congenital Heart Disease, Valvular Heart Disease, Rheumatic Fever, Cardiomyopathy, Edema, Pericarditis, Cellulitis, Deep Vein Thrombosis, Hypotension or Varicose Veins RESPIRATORY: Negative Chronic Obstructive Pulmonary Disease (COPD) GENITOURINARY: Negative Renal Disease ENDOCRINE: Negative Diabetes Mellitus Type 1 or Diabetes Mellitus Type 2 Surgical History SURGICAL: Negative Pacemaker Social History SMOKING STATUS: Former smoker Exam Vital Signs Temp Pulse Resp BP Pulse Ox O2 Del Method O2 Flow Rate 97.6 F 99 18 155/97 H 99 Nasal Cannula 2 11/26/24 11:42 11/26/24 12:00 11/26/24 11:42 11/26/24 11:42 11/26/24 11:42 11/26/24 11:42 11/26/24 11:42 Narrative Exam General: Awake. obese HEENT: Normocephalic, atraumatic, mucous membranes moist. Heart: Regular rate and rhythm, no murmurs. Lungs: Clear to auscultation with no wheezing or crackles. Abdomen: Soft, nondistended, nontender, positive bowel sounds. ?No guarding or rebound tenderness. Neurologic: Alert and oriented x3, no gross neurological deficit, and patient able to move all 4 extremities. Extremities: No edema. Skin: No rash or ecchymoses. Results Labs 11/26/24 16:27 11/26/24 04:28 Labs: Short CBC 11/25/24 11/26/24 11/26/24 Range/Units 21:22 04:28 11:49 WBC 10.8 9.2 (3.6-11.0) Thou/mm3 Hgb 13.4 11.8 L 10.3 L (12.0-16.0) g/dL Hct 38.4 33.8 L 29.1 L (36.0-46.0) % Plt Count 207 178 (140-440) Thou/mm3 BMP 11/25/24 11/26/24 21:22 04:28 Sodium 140 144 Potassium 4.2 3.8 Chloride 106 112 H Carbon Dioxide 20.8 21.9 BUN 27 H 31 H Creatinine 1.4 H 0.9 D Glucose 112 H 120 H Calcium 9.5 8.4 Liver Function 11/25/24 11/26/24 Range/Units 21:22 04:28 Total Bilirubin 0.4 0.5 (0.3-1.2) mg/dL AST 31 23 (0-34) U/L ALT 40 33 (10-49) U/L Alkaline Phosphatase 144 H 115 D (46-116) U/L Albumin 4.2 3.8 (3.4-4.8) gm/dL Urine 11/25/24 Range/Units 21:33 Urine Color Yellow (Lt Yel-Yel) Urine Clarity Turbid A (Clear/Hazy) Urine pH 6.0 (5.0-7.0) Ur Specific [place] 1.032 (1.001-1.035) Urine Protein 1+ A (Neg - Trace) Urine Glucose (UA) Negative (Negative) Quality Measures Quality Measures VTE prophylaxis Advance care planning discussed with:: patient Medications Home Medications and Allergies Home Medications ?Medication ?Instructions ?Recorded ?Confirmed ?Type diclofenac sodium 75 mg mg PO 11/26/24 History tablet,delayed release ergocalciferol (vitamin D2) 1,250 11/26/24 History mcg (50,000 unit) capsule Allergies Allergy/AdvReac Type Severity Reaction Status Date / Time No Known Allergies Allergy Unknown Uncoded 11/26/24 08:03 Visit Medications Acetaminophen (Acetaminophen 325 Mg Tablet) 650 mg PO Q6H PRN PRN Reason: Fever >101.5 Stop: 12/26/24 03:22 Acetaminophen (Acetaminophen 325 Mg Tablet) 650 mg PO Q6H PRN PRN Reason: PAIN SCALE 1-3 (mild Stop: 12/26/24 03:22 Hydrocodone Bitart/Acetaminophen (Hydrocodone/Apap 5/325 Tablet) 1 tab PO Q4HR PRN PRN Reason: Pain Scale 4-10 Stop: 12/01/24 03:22 Dextrose (Dextrose 50%-Water Inj 50 Ml Syringe) 25 ml IV Q15MIN PRN PRN Reason: BG 50-70 responsive npo pt Stop: 12/26/24 03:26 Dextrose (Dextrose 50%-Water Inj 50 Ml Syringe) 50 ml IV Q15MIN PRN PRN Reason: BG <50 OR BG <70 & pt unresponsive Stop: 12/26/24 03:26 Glucagon (Glucagon Inj 1 Mg Vial) 1 mg IM Q15MIN PRN PRN Reason: BG <70, and no IV access Hydralazine HCl (Hydralazine Inj 20 Mg/Ml Vial) 10 mg IV Q6H PRN PRN Reason: SBP > 180 Stop: 12/26/24 03:29 Lactated Ringer's (Lactated Ringers) 1,000 mls @ 75 mls/hr IV .[id number] MALIK Stop: 12/26/24 03:29 Last Infusion: 11/26/24 08:02 Dose: 75 mls/hr Insulin Human Lispro (Insulin Lispro (Admelog) 1 Unit/0.01 Ml Unit) 0 unit SC Q6H MALIK; Protocol Stop: 12/26/24 03:29 Last Admin: 11/26/24 09:59 Dose: Not Given Ondansetron HCl (Ondansetron Inj 2 Mg/Ml Inj 2 Ml) 4 mg IV Q6H PRN; Protocol PRN Reason: NAUSEA OR VOMITING Stop: 12/26/24 03:22 Pantoprazole Sodium (Pantoprazole Inj 40 Mg Vial) 40 mg IVP BID MALIK Stop: 12/26/24 07:59 Last Admin: 11/26/24 08:06 Dose: Not Given Discontinued Medications Lactated Ringer's (Lactated Ringers) 1,000 mls @ 999 mls/hr IV .Q1H1M ONE Stop: 11/26/24 08:27 Last Infusion: 11/26/24 08:02 Dose: 0 mls/hr Pantoprazole Sodium (Pantoprazole Inj 40 Mg Vial) 40 mg IVP QDAY MALIK Stop: 12/26/24 08:59 Polyethylene Glycol/Electrolytes ([place]/Nahco3/Kenny/Peg (Golytely) 4,000 Ml Btl) 4,000 ml PO X1 ONE Stop: 11/26/24 03:24 Last Admin: 11/26/24 05:15 Dose: 4,000 ml Assessment & Plan Plan 74-year-old female with significant past medical history of hypertension, diabetes, osteoarthritis presented to the hospital with chief complaints of bleeding per rectum since 1 day and admitted for bleeding per rectum # Acute blood loss anemia # GI bleed # Likely lower GI bleed-diverticular bleed versus hemorrhoids, to R/O Malignancy, less likely - Presented to the hospital with chief complaints of bleeding per rectum - Denies associated abdominal pain, fever, mucus, recent travel - Had a history of colonoscopy more than 10 years ago and found to have diverticulosis - Hemoglobin dropped from 13.4 to 9.5 since the time of admission Plan - Started on GoLytely preparation, scheduled for colonoscopy on 11/26/2024 - Continue to watch for bleeding per rectum episodes - Monitor CBC and if Hb less than 7-recommended to give a blood transfusion #LLOYD #Hypertension -Rest of the medical conditions to be treated as per primary team Patient plan of care was discussed with the attending physician, Dr. Shelton Elias, PGY1 Attending Provider Attestation/Addendum 74 years old female evaluated examined and case discussed with the internal medicine resident Agree with the plan of care with Harper prep and performing colonoscopy Informed consent obtained for fiberoptic esophagogastroduodenoscopy with possible therapeutic intervention possible biopsy under intravenous moderate sedation Differential diagnosis most likely include diverticular source of bleeding although arteriovenous malformations large colonic polyp ischemic colitis could also be another possibility in this age group Thank you for the opportunity to participate in the care of this patient
[2024-11-26 16:38] LABS: Hematocrit 27.7 % (36.0-46.0); Hemoglobin 9.5 g/dL (12.0-16.0)
[2024-11-26 22:41] LABS: Hematocrit 27.5 % (36.0-46.0); Hemoglobin 9.5 g/dL (12.0-16.0)
[2024-11-27] VITALS (14 sets, daily range): BP systolic 120–189; BP diastolic 68–99; PULSE 86–103; RESP 12–22; TEMP 36.3–37.2; O2SAT 92–100; BMI 39.0
[2024-11-27 05:45] LABS: Basophils % (Auto) 0 % (0-2.5); Eosinophils # (Auto) 0.3 Thou/mm3 (0.0-0.5); Eosinophils % (Auto) 3 % (0-10); Hematocrit 25.7 % (36.0-46.0); Hemoglobin 8.9 g/dL (12.0-16.0); Immature Granulocytes % (Auto) 0 % (0-0); Immature Granulocytes Auto 0.03 Thou/mm3 (0.00-0.00); Lymphocytes # (Auto) 2.3 Thou/mm3 (1.0-4.8); Lymphocytes % (Auto) 25 % (10-50); Mean Corpuscular HGB Conc 34.6 g/dl (31.0-37.0); Mean Corpuscular Hemoglobin 31.1 pg (25.0-35.0); Mean Corpuscular Volume 90 fL (80-100); Monocytes % (Auto) 10 % (0-12); Neutrophils # (Auto) 5.7 Thou/mm3 (1.8-7.7); Neutrophils % (Auto) 62 % (37-80); Nucleated Red Blood Cell % 0 /100 WBC (0); Platelet Count 153 Thou/mm3 (140-440); RDW Standard Deviation 46.4 fL (36.4-46.3); Red Blood Count 2.86 Miln/mm3 (4.00-5.20); White Blood Count 9.2 Thou/mm3 (3.6-11.0)
[2024-11-27 06:24] LABS: Alanine Aminotransferase 30 U/L (10-49); Albumin, Serum 3.2 gm/dL (3.4-4.8); Albumin/Globulin Ratio 1.6 (1.2-2.2); Alkaline Phosphatase 68 U/L (46-116); Anion Gap 9 (7-16); Aspartate Amino Transferase 22 U/L (0-34); BUN/Creatinine Ratio 33 Ratio (12-20); Bilirubin,Total 0.7 mg/dL (0.3-1.2); Blood Urea Nitrogen 20 mg/dL (9-23); Calcium 8.2 mg/dL (8.3-10.6); Calcium (Corrected) 8.8 mg/dL (8.5-10.1); Carbon Dioxide 23.6 mMol/L (20.0-31.0); Chloride 110 mMol/L (98-107); Creatinine (Component) 0.6 mg/dL (0.6-1.3); Glucose 104 mg/dL (74-106); Osmolality,Calculated 287 (275-295); Potassium 3.6 mMol/L (3.4-5.1); Sodium 143 mMol/L (136-145); Total Protein 5.2 gm/dL (5.7-8.2); eGFR > 60 See Note
--- NOTE | 2024-11-27 07:33 | PC.NURSE ---
spoke with Dr. Quach to ask if she was okay with pt to be medtele, Dr. Quach agreed with transfer order. 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
[2024-11-27] MEDS: PANTOPRAZOLE INJ 40 MG VIAL IVP ×2 (08:34→22:02)
--- NOTE | 2024-11-27 09:28 | PC.SS ---
Initial assessment: patient is a 74 year old female admitted for lower GI bleed. Patient confirmed demographic information. Patient lives with her son, Meek. Patient identified her son, Dong as her emergency contact. Patient reports she is independent with ADL's, no use of DME reported. Patient followed by Dr. Quach for primary care. Patient pharmacy is [facility] in [place]. Patient to discharge home at time of discharge, family to assist with transportation home. No needs identified. Patient provided with community resource handout. D/c plan: Home Next of kin: sonDong
--- NOTE | 2024-11-27 09:53 | PC.NURSE ---
Pt given pamphlet regarding blood transfusions. Allowed time to read. Has had blood transfusion in the past. Questions asked and answered to satisfaction. Consent for blood transfusion obtained.
[2024-11-27] MEDS: ferumoxytoL (NON-ESRD) 510 MG in SODIUM CHLORIDE 0.9% 100 ML 234 MG IV (10:27)
[2024-11-27 12:07] LABS: Hemoglobin 8.4 g/dL (12.0-16.0)
--- NOTE | 2024-11-27 13:53 | ESPR_ITS ---
Documentation for date of: 11/27/24 Subjective Subjective Interval history: 74 y/o F with PMHx significant for osteoarthritis on diclofenac, untreated diabetes, untreated hypertension who presented to [facility] with a chief complaint of bright red blood per rectum. Patient states she began to have bowel movements that were soft and with significant amount of blood in the toilet bowl. Patient states that on the way to the emergency department she did have some lightheadedness but did not pass out or develop shortness of breath. Patient denies any ingestion of undercooked meats, abdominal pain, nausea vomiting, any family history of colon cancer, unexpected weight loss, chest pain, headache, or any other associated symptoms. She has experienced early satiety and decreased appetite but has not had significant weight loss. She endorses taking diclofenac 1-2 times daily for arthritis and has recently been prescribed vitamin D for mentation. Patient has remote history of colonoscopy more than 10 years prior at which point she was found to have a single diverticuli but no history of polyps. Patient denies any smoking history or history of GERD. ED vitals: BP 186/116, pulse 120, RR 18, temp afebrile, O2 sat 96 on room air ED labs: WBC 10.8, hemoglobin 13.4, BUN 27, creatinine 1.4, GFR 40, glucose 112, alk phos 144. U/A: Turbid, 1+ protein, 1+ ketones, 1+ blood and 4+ calcium oxalate crystals. ED management: None Ed Imaging: None Patient seen and examined at bedside, resting comfortably. Patient reports recently had significant bowel movements without bloody stool, confirmed by nurse. Denies fevers, chills, chest pain, shortness of breath, abdominal pain, fatigue. WBC 10.2, hemoglobin downtrending from 11.8-10.3. Sodium 144, potassium 3.8, bicarb 21.9, BUN 31, creatinine 0.9, EGFR greater than 60. Gave patient 1 L fluid bolus, will closely monitor hemoglobin. Patient taking GoLytely prep anticipation colonoscopy. GI consulted. Took over care from hospitalist team. 11/27/2024: Patient seen and examined sitting in chair, resting comfortably. Reports feeling well overall. Still passing blood clots in otherwise clear stool. Planning for colonoscopy today. Hg decreased to 8.4. Closely monitoring, will transfuse 2 units if decreased below 8.0. WBC 9.2, sodium 143, potassium 3.6, bicarb 23.6, BUN 20, creatinine 0.6, eGFR >60. Albumin decreased from 3.8 to 3.2. Continue IVF. Gave Flexaril x1 for back pain. Exam Vital Signs Temp Pulse Resp BP Pulse Ox O2 Del Method O2 Flow Rate 98.1 F 86 19 148/94 H 97 Room Air 2 11/27/24 12:00 11/27/24 12:00 11/27/24 12:00 11/27/24 12:11/27/24 12:11/27/24 12:11/26/24 11:42 Narrative Exam PE: Gen: Well-developed and well-nourished. HEENT: NCAT, PERRLA, EOMI, MMM, anicteric conjunctivae. CVS: normal S1 and S2. RRR. No M/R/G. Resp: CTA B/L. No rhonchi, rales, crackles or wheezing. Abd: soft, non-tender, non-distended. MSK: Good ROM in BUE & BLE. No edema or rash. Neuro: CN II-XII grossly intact. Strength 5/5 in BUE & BLE. Alert and oriented x3. Psych: appropriate mood and affect. Objective Labs 11/29/24 15:58 11/29/24 05:14 Labs: Laboratory Results - last 24 hr 11/26/24 11/26/24 11/26/24 01:19 16:27 22:30 WBC RBC Hgb 9.5 L 9.5 L Hct 27.7 L 27.5 L MCV MCH MCHC RDW Std Deviation Plt Count Neut % (Auto) Lymph % (Auto) [place] % (Auto) Eos % (Auto) Baso % (Auto) Neut # (Auto) Lymph # (Auto) [place] # (Auto) Eos # (Auto) Baso # (Auto) Immature Gran # (Auto) Absolute Nucleated RBC Immature Gran % Nucleated RBC % Sodium Potassium Chloride Carbon Dioxide Anion Gap BUN Creatinine Estim Creat Clear Calc eGFR BUN/Creatinine Ratio Glucose Calculated Osmolality Calcium Corrected Calcium Total Bilirubin AST ALT Alkaline Phosphatase Total Protein Albumin Globulin Albumin/Globulin Ratio Blood Type O Positive Antibody Screen NEGATIVE Crossmatch See Detail Blood Bank Wristband ID Yes 11/27/24 11/27/24 04:49 11:07 WBC 9.2 RBC 2.86 L Hgb 8.9 L 8.4 L Hct 25.7 L 25.0 L MCV 90 MCH 31.1 MCHC 34.6 RDW Std Deviation 46.4 H Plt Count 153 Neut % (Auto) 62 Lymph % (Auto) 25 [place] % (Auto) 10 Eos % (Auto) 3 Baso % (Auto) 0 Neut # (Auto) 5.7 Lymph # (Auto) 2.3 [place] # (Auto) 1.0 H Eos # (Auto) 0.3 Baso # (Auto) 0.0 Immature Gran # (Auto) 0.03 H Absolute Nucleated RBC 0.00 Immature Gran % 0 Nucleated RBC % 0 Sodium 143 Potassium 3.6 Chloride 110 H Carbon Dioxide 23.6 Anion Gap 9 BUN 20 Creatinine 0.6 Estim Creat Clear Calc 83.0 eGFR > 60 BUN/Creatinine Ratio 33 H Glucose 104 Calculated Osmolality 287 Calcium 8.2 L Corrected Calcium 8.8 Total Bilirubin 0.7 AST 22 ALT 30 Alkaline Phosphatase 68 D Total Protein 5.2 L Albumin 3.2 L D Globulin 2.0 L Albumin/Globulin Ratio 1.6 Blood Type Antibody Screen Crossmatch Blood Bank Wristband ID Quality Measures Quality Measures VTE prophylaxis Advance care planning discussed with:: patient Assessment & Plan Assessment Current Active Medications: Generic Name Dose Route Start Last Admin Trade Name Freq PRN Reason Stop Dose Admin Acetaminophen 650 mg 11/26/24 03:23 Acetaminophen 325 Mg Tablet PO 12/26/24 03:22 Q6H PRN Fever >101.5 Acetaminophen 650 mg 11/26/24 03:23 Acetaminophen 325 Mg Tablet PO 12/26/24 03:22 Q6H PRN PAIN SCALE 1-3 (mild Hydrocodone Bitart/Acetaminophen 1 tab 11/26/24 03:23 Hydrocodone/Apap 5/325 Tablet PO 12/01/24 03:22 Q4HR PRN Pain Scale 4-10 Dextrose 25 ml 11/26/24 03:27 Dextrose 50%-Water Inj 50 Ml Syringe IV 12/26/24 03:26 Q15MIN PRN BG 50-70 responsive npo pt Dextrose 50 ml 11/26/24 03:27 Dextrose 50%-Water Inj 50 Ml Syringe IV 12/26/24 03:26 Q15MIN PRN BG <50 OR BG <70 & pt unresponsive Glucagon 1 mg 11/26/24 03:27 Glucagon Inj 1 Mg Vial IM Q15MIN PRN BG <70, and no IV access Hydralazine HCl 10 mg 11/26/24 03:28 Hydralazine Inj 20 Mg/Ml Vial IV 12/26/24 03:29 Q6H PRN SBP > 180 Insulin Human Lispro 0 unit 11/27/24 12:00 11/27/24 12:13 Insulin Lispro (Admelog) 1 Unit/0.01 Ml Unit SC 12/27/24 11:59 Not Given Q6H MALIK Protocol Ondansetron HCl 4 mg 11/26/24 03:23 Ondansetron Inj 2 Mg/Ml Inj 2 Ml IV 12/26/24 03:22 Q6H PRN NAUSEA OR VOMITING Protocol Pantoprazole Sodium 40 mg 11/26/24 08:00 11/27/24 08:34 Pantoprazole Inj 40 Mg Vial IVP 12/26/24 07:59 40 mg BID MALIK Administration Plan 74 y/o F with PMHx significant for osteoarthritis on diclofenac, untreated diabetes, untreated hypertension who presented to [facility] with a chief complaint of bright red blood per rectum #Lower GI bleed #Acute anemia Patient presented with complaint of hematochezia. Patient has a history of using diclofenac daily for osteoarthritis. No history of straining or difficulty with bowel movements. No previous history of internal hemorrhoids. Remote history of colonoscopy more than 10 years prior. No alarm symptoms: Mild early satiety. Hemoglobin downtrending, will monitor closely. -GI consulted, appreciate recommendations -GoLytely prep in anticipation of colonoscopy -IVF: Lactated Ringer's at 75 mL/h -SCDs for DVT prophylaxis -Hold NSAIDs in the setting of GI bleed -Frequent Hg checks, transfuse if below 8.0 #LLOYD, improving Likely prerenal in the setting of GI losses. BUN elevated out of proportion, likely secondary to digested blood. -IVF as above #Hypertension History of hypertension that is currently untreated -Hydralazine as needed for systolic blood pressure over 180 DVT prophylaxis: SCDs GI prophylaxis: Protonix 40 IV daily Diet: Clear liquid diet Lines: Peripheral IVs CODE STATUS: Full code Plan of care discussed with attending Dr. Quach. Bairon Casillas MD PGY?1 Attending Provider Attestation/Addendum Patient seen and examined with resident physician Dr. Bueno. Note reviewed, agree with findings and recommendations. Patient going for colonoscopy today.
[2024-11-27 17:54] LABS: Hematocrit 24.9 % (36.0-46.0)
[2024-11-27 17:55] LABS: Hemoglobin 8.5 g/dL (12.0-16.0)
--- NOTE | 2024-11-27 21:18 | SUR.PHASEI ---
Pt. arrived to recovery via elvin, pt. is resting with eyes closed, responds to verbal commands, VSS, no c/o pain or nausea at this time, lung sounds clear, equal expansion azael., report received from Riya MAHONEY.
--- NOTE | 2024-11-27 21:38 | SUR.PHASEI ---
Called and gave report on pt. s/p procedure to Parth MAHONEY on M/S unit.
--- NOTE | 2024-11-27 21:45 | SUR.PHASEI ---
Pt. transferred to room 375 via SUSANNAH oconnor, no c/o pain or nausea at this time, Parth MAHONEY assumed care of pt.
[2024-11-28] VITALS (17 sets, daily range): BP systolic 105–184; BP diastolic 78–101; PULSE 83–105; RESP 15–22; TEMP 36.1–36.6; O2SAT 93–97; BMI 40.2
[2024-11-28 06:03] LABS: Basophils % (Auto) 0 % (0-2.5); Eosinophils # (Auto) 0.3 Thou/mm3 (0.0-0.5); Eosinophils % (Auto) 4 % (0-10); Hematocrit 22.5 % (36.0-46.0); Immature Granulocytes % (Auto) 0 % (0-0); Immature Granulocytes Auto 0.01 Thou/mm3 (0.00-0.00); Lymphocytes # (Auto) 1.9 Thou/mm3 (1.0-4.8); Lymphocytes % (Auto) 25 % (10-50); Mean Corpuscular HGB Conc 34.2 g/dl (31.0-37.0); Mean Corpuscular Hemoglobin 30.9 pg (25.0-35.0); Mean Corpuscular Volume 90 fL (80-100); Monocytes # (Auto) 0.8 Thou/mm3 (0.0-0.8); Monocytes % (Auto) 11 % (0-12); Neutrophils # (Auto) 4.5 Thou/mm3 (1.8-7.7); Neutrophils % (Auto) 60 % (37-80); Nucleated Red Blood Cell % 0 /100 WBC (0); Platelet Count 140 Thou/mm3 (140-440); RDW Standard Deviation 46.7 fL (36.4-46.3); Red Blood Count 2.49 Miln/mm3 (4.00-5.20); White Blood Count 7.5 Thou/mm3 (3.6-11.0)
[2024-11-28 06:09] LABS: Hemoglobin 7.7 g/dL (12.0-16.0)
[2024-11-28 06:33] LABS: Alanine Aminotransferase 28 U/L (10-49); Albumin, Serum 3.2 gm/dL (3.4-4.8); Albumin/Globulin Ratio 1.7 (1.2-2.2); Alkaline Phosphatase 69 U/L (46-116); Anion Gap 9 (7-16); Aspartate Amino Transferase 30 U/L (0-34); BUN/Creatinine Ratio 27 Ratio (12-20); Bilirubin,Total 0.7 mg/dL (0.3-1.2); Blood Urea Nitrogen 16 mg/dL (9-23); Calcium 7.8 mg/dL (8.3-10.6); Calcium (Corrected) 8.4 mg/dL (8.5-10.1); Carbon Dioxide 25.7 mMol/L (20.0-31.0); Chloride 112 mMol/L (98-107); Creatinine (Component) 0.6 mg/dL (0.6-1.3); Estimated Creatinine Clearance 84.5 mL/min (>60); Globulin 1.9 gm/dL (2.3-3.5); Glucose 92 mg/dL (74-106); Osmolality,Calculated 293 (275-295); Potassium 3.6 mMol/L (3.4-5.1); Sodium 147 mMol/L (136-145); Total Protein 5.1 gm/dL (5.7-8.2); eGFR > 60 See Note
[2024-11-28] MEDS: PANTOPRAZOLE INJ 40 MG VIAL IVP ×2 (09:03→21:20)
--- NOTE | 2024-11-28 11:47 | PD.NEPHPROG ---
Documentation for date of: 11/28/24 Subjective Subjective Interval history: 74 y/o F with PMHx significant for osteoarthritis on diclofenac, untreated diabetes, untreated hypertension who presented to [facility] with a chief complaint of bright red blood per rectum. Patient states she began to have bowel movements that were soft and with significant amount of blood in the toilet bowl. Patient states that on the way to the emergency department she did have some lightheadedness but did not pass out or develop shortness of breath. Patient denies any ingestion of undercooked meats, abdominal pain, nausea vomiting, any family history of colon cancer, unexpected weight loss, chest pain, headache, or any other associated symptoms. She has experienced early satiety and decreased appetite but has not had significant weight loss. She endorses taking diclofenac 1-2 times daily for arthritis and has recently been prescribed vitamin D for mentation. Patient has remote history of colonoscopy more than 10 years prior at which point she was found to have a single diverticuli but no history of polyps. Patient denies any smoking history or history of GERD. ED vitals: BP 186/116, pulse 120, RR 18, temp afebrile, O2 sat 96 on room air ED labs: WBC 10.8, hemoglobin 13.4, BUN 27, creatinine 1.4, GFR 40, glucose 112, alk phos 144. U/A: Turbid, 1+ protein, 1+ ketones, 1+ blood and 4+ calcium oxalate crystals. ED management: None Ed Imaging: None Patient seen and examined at bedside, resting comfortably. Patient reports recently had significant bowel movements without bloody stool, confirmed by nurse. Denies fevers, chills, chest pain, shortness of breath, abdominal pain, fatigue. WBC 10.2, hemoglobin downtrending from 11.8-10.3. Sodium 144, potassium 3.8, bicarb 21.9, BUN 31, creatinine 0.9, EGFR greater than 60. Gave patient 1 L fluid bolus, will closely monitor hemoglobin. Patient taking GoLytely prep anticipation colonoscopy. GI consulted. Took over care from hospitalist team. 11/27/2024: Patient seen and examined sitting in chair, resting comfortably. Reports feeling well overall. Still passing blood clots in otherwise clear stool. Planning for colonoscopy today. Hg decreased to 8.4. Closely monitoring, will transfuse 2 units if decreased below 8.0. WBC 9.2, sodium 143, potassium 3.6, bicarb 23.6, BUN 20, creatinine 0.6, eGFR >60. Albumin decreased from 3.8 to 3.2. Continue IVF. Gave Flexaril x1 for back pain. 11/28/2024 patient currently seen in medical floor. Resting comfortably. Hemoglobin significantly decreased. Will transfuse 2 units of blood. No myrtle bleeding. Colonoscopy showed extensive left diverticulosis with bleed. Dr. Peoples recommended surgical consult. Dr. Dr. Corley was called. Did not think patient needs emergency surgery. Watchful waiting. Review of Systems Review of Systems Narrative Review of Systems: CONSTITUTIONAL: Patient denies any fever, chills. HEENT: Denies any visual disturbances or hearing problems. CARDIOVASCULAR: Patient denies any chest pain, shortness of breath, swelling in the lower extremities. PULMONARY: Patient denies any shortness of breath, cough. GASTROINTESTINAL: Patient denies any abdominal pain, constipation, nausea, vomiting, diarrhea. + Blood in stools GENITOURINARY: Patient denies any urinary symptoms of burning or frequency or hematuria, denies any form in the urine. SKIN: Denies any rash. MUSCULOSKELETAL: Denies any muscular skeletal problems of joint pains. NEUROLOGICAL: Denies any neurological problems of strokes, seizures or confusion. Denies any memory problems. PSYCHIATRIC: Denies any depression or anxiety. LYMPHATICS : No lymphadenopathy Exam Vital Signs Temp Pulse Resp BP Pulse Ox O2 Del Method O2 Flow Rate 36.6 C 97 18 156/93 H 96 Room Air 3 11/28/24 11:26 11/28/24 11:26 11/28/24 07:45 11/28/24 11:26 11/28/24 07:45 11/28/24 07:45 11/27/24 21:14 Narrative Exam GENERAL APPEARANCE: Patient seems to be comfortable, adequately hydrated and nourished. HEENT: EOMI, PERRLA NECK: Neck supple, no JVD or bruit CARDIOVASCULAR: Heart regular, no murmurs LUNGS/CHEST: Chest clear to auscultation. No rales, rhonchi, wheezing ABDOMEN: Soft, nontender, nondistended. No masses. Normal bowel sounds. EXTREMITIES: No edema, clubbing or cyanosis. SKIN: Skin exam normal without any rashes MUSCULOSKELETAL: Musculoskeletal exam normal PSYCHIATRIC: Normal mood, affect LYMPHATICS: No lymphadenopathy noted NEUROLOGICAL : No neurological deficits Objective Labs 11/29/24 15:58 11/29/24 05:14 Labs: Laboratory Results - last 24 hr 11/26/24 11/27/24 11/27/24 01:19 11:07 15:15 WBC RBC Hgb 8.4 L 8.5 L Hct 25.0 L 24.9 L MCV MCH MCHC RDW Std Deviation Plt Count Neut % (Auto) Lymph % (Auto) Centre % (Auto) Eos % (Auto) Baso % (Auto) Neut # (Auto) Lymph # (Auto) Centre # (Auto) Eos # (Auto) Baso # (Auto) Immature Gran # (Auto) Absolute Nucleated RBC Immature Gran % Nucleated RBC % Sodium Potassium Chloride Carbon Dioxide Anion Gap BUN Creatinine Estim Creat Clear Calc eGFR BUN/Creatinine Ratio Glucose Calculated Osmolality Calcium Corrected Calcium Total Bilirubin AST ALT Alkaline Phosphatase Total Protein Albumin Globulin Albumin/Globulin Ratio Blood Type O Positive Antibody Screen NEGATIVE Crossmatch See Detail Blood Bank Wristband ID Yes 11/28/24 05:29 WBC 7.5 RBC 2.49 L Hgb 7.7 L Hct 22.5 L MCV 90 MCH 30.9 MCHC 34.2 RDW Std Deviation 46.7 H Plt Count 140 Neut % (Auto) 60 Lymph % (Auto) 25 Centre % (Auto) 11 Eos % (Auto) 4 Baso % (Auto) 0 Neut # (Auto) 4.5 Lymph # (Auto) 1.9 Centre # (Auto) 0.8 Eos # (Auto) 0.3 Baso # (Auto) 0.0 Immature Gran # (Auto) 0.01 H Absolute Nucleated RBC 0.00 Immature Gran % 0 Nucleated RBC % 0 Sodium 147 H Potassium 3.6 Chloride 112 H Carbon Dioxide 25.7 Anion Gap 9 BUN 16 Creatinine 0.6 Estim Creat Clear Calc 84.5 eGFR > 60 BUN/Creatinine Ratio 27 H Glucose 92 Calculated Osmolality 293 Calcium 7.8 L Corrected Calcium 8.4 L Total Bilirubin 0.7 AST 30 ALT 28 Alkaline Phosphatase 69 Total Protein 5.1 L Albumin 3.2 L Globulin 1.9 L Albumin/Globulin Ratio 1.7 Blood Type Antibody Screen Crossmatch Blood Bank Wristband ID Assessment & Plan Additional Assessment & Plan Additional Plan: 74 y/o F with PMHx significant for osteoarthritis on diclofenac, untreated diabetes, untreated hypertension who presented to [facility] with a chief complaint of bright red blood per rectum #Lower GI bleed #Acute anemia Patient presented with complaint of hematochezia. Patient has a history of using diclofenac daily for osteoarthritis. No history of straining or difficulty with bowel movements. No previous history of internal hemorrhoids. Remote history of colonoscopy more than 10 years prior. No alarm symptoms: Mild early satiety. Hemoglobin downtrending, will monitor closely. Status post colonoscopy with extensive diverticulosis and diverticular bleed. Surgical consultation with Dr. Corley recommended. Per Dr. Dr. Corley-no need for emergency surgery. -SCDs for DVT prophylaxis -Hold NSAIDs in the setting of GI bleed Will transfuse 2 units of blood today #LLOYD, improving Likely prerenal in the setting of GI losses. BUN elevated out of proportion, likely secondary to digested blood. Creatinine normalized #Hypertension History of hypertension that is currently untreated -Hydralazine as needed for systolic blood pressure over 180 DVT prophylaxis: SCDs GI prophylaxis: Protonix 40 IV daily Diet: Clear liquid diet Lines: Peripheral IVs CODE STATUS: Full code Quality - progress note Quality Measures Quality Measures: VTE prophylaxis Reason for Continued Stay Reason for Continued Stay: further monitoring
--- NOTE | 2024-11-28 13:18 | PC.SS ---
Rounding: Pending PT reccs and final ID reccs for possible IV ABX with [facility]
--- NOTE | 2024-11-28 14:29 | PC.SS ---
Rounding: Pending Dr. Quach and Shelton reccs
[2024-11-28] MEDS: ACETAMINOPHEN 325 MG TABLET 650 MG PO (16:29)
--- NOTE | 2024-11-28 19:36 | PD.IMPROG ---
Documentation for date of: 11/28/24 Subjective Subjective Interval history: Patient evaluated downward trending hemoglobin to 7.7 and 22.5 Case discussed with the surgical instrument maker Dr. Corley Patient clearly has a left-sided diverticular bleed There is no absolute source of bleeding on the right side of the colon ileocecal valve ascending colon hepatic flexure or transverse colon Exam Vital Signs Temp Pulse Resp BP Pulse Ox O2 Del Method O2 Flow Rate 97.9 F 86 20 179/94 H 95 Room Air 3 11/28/24 18:15 11/28/24 18:15 11/28/24 18:15 11/28/24 18:15 11/28/24 18:15 11/28/24 15:51 11/27/24 21:14 Objective Labs 11/28/24 05:29 11/28/24 05:29 Labs: Laboratory Results - last 24 hr 11/26/24 11/28/24 01:19 05:29 WBC 7.5 RBC 2.49 L Hgb 7.7 L Hct 22.5 L MCV 90 MCH 30.9 MCHC 34.2 RDW Std Deviation 46.7 H Plt Count 140 Neut % (Auto) 60 Lymph % (Auto) 25 Arthur % (Auto) 11 Eos % (Auto) 4 Baso % (Auto) 0 Neut # (Auto) 4.5 Lymph # (Auto) 1.9 Arthur # (Auto) 0.8 Eos # (Auto) 0.3 Baso # (Auto) 0.0 Immature Gran # (Auto) 0.01 H Absolute Nucleated RBC 0.00 Immature Gran % 0 Nucleated RBC % 0 Sodium 147 H Potassium 3.6 Chloride 112 H Carbon Dioxide 25.7 Anion Gap 9 BUN 16 Creatinine 0.6 Estim Creat Clear Calc 84.5 eGFR > 60 BUN/Creatinine Ratio 27 H Glucose 92 Calculated Osmolality 293 Calcium 7.8 L Corrected Calcium 8.4 L Total Bilirubin 0.7 AST 30 ALT 28 Alkaline Phosphatase 69 Total Protein 5.1 L Albumin 3.2 L Globulin 1.9 L Albumin/Globulin Ratio 1.7 Blood Type O Positive Antibody Screen NEGATIVE Crossmatch See Detail Blood Bank Wristband ID Yes Impressions Impression: Diverticular bleed left side of the colon Plan Recommend surgical intervention versus embolization Assessment & Plan Time Spent With Patient Time: Total time spent is greater than 50% in coordination of care (as documented) at patient's floor/unit and/or counseling patient:
--- NOTE | 2024-11-28 19:55 | PC.NURSE ---
Dr. Corley at bedside, had lengthy discussion in regards to disease process/plan of care with all questions answered. MD ordered STAT CBC and to monitor all bowel movements for bleeding, nurse to eval pt to not flush.
--- NOTE | 2024-11-28 20:02 | PD.SURCONS ---
HPI Consult details Consult date: 11/28/24 Reason for consultation narrative: The patient was seen in consultation because of diverticular bleeding of the left colon. History of present illness: Patient presents revealed the patient was in her usual health until last Sunday which was 3 days ago when she started having bloody bowel movement. She had frequent bloody bowel movements associated with clots and she came to the emergency room where she passed some more bloody bowel movements. She would say it is up to 7 or 8 bowel movements. She felt lightheaded but no history of any fainting. She never had any such bleeding in the past. She has had a colonoscopy in the past and was found to have some diverticulosis. She never has any history of diverticulitis. Patient's other medical problem consist of hypertension and severe osteoarthritis for which she is taking diclofenac. 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 Past Medical History Past Medical History NEUROLOGIC: Negative Neurological Disorders or Seizures CARDIAC: Positive Hypertension; Negative Cardiac Disorders, Myocardial Infarction, Cardiac Arrhythmia, Atrial Fibrillation, Angina, Heart Murmur, Coronary Artery Disease, Atherosclerotic Heart Disease, Peripheral Vascular Disease, Hypercholesterolemia, Aneurysm, Congestive Heart Failure, Congenital Heart Disease, Valvular Heart Disease, Rheumatic Fever, Cardiomyopathy, Edema, Pericarditis, Cellulitis, Deep Vein Thrombosis, Hypotension or Varicose Veins RESPIRATORY: Negative Respiratory Disorders or Chronic Obstructive Pulmonary Disease (COPD) GASTROINTESTINAL: Positive Gastrointestinal Disorders and Gastrointestinal Bleed (Current visit) GENITOURINARY: Negative Genitourinary Disorders or Renal Disease REPRODUCTIVE: Positive Previous Pregnancies MUSCULOSKELETAL: Positive Musculoskeletal Disorders, Arthritis, Fractures (pelvic bone per pt) and Degenerative Joint Disease (bilateral knees) ENT: Positive History of ENT Problems and Cataracts (developing per pt MD) ENDOCRINE: Positive Endocrine Disorders; Negative Diabetes Mellitus Type 1 or Diabetes Mellitus Type 2 HEMATOLOGIC: Positive Blood Disorders and Anemia PSYCHO/SOCIAL: Positive Depression and Anxiety OTHER HISTORY: Positive Hospitalization, Blood Transfusions and Chicken Pox; Negative Autoimmune Disease, Down Syndrome, Developmental Delay, Shingles, Falls, Blood Transfusion Reaction, Anesthesia Reactions, Organ Transplant or Cancer Surgical History SURGICAL: Positive Section; Negative Cardiac Surgery, Pacemaker, Endocrine Surgery, Ear Surgery, Eye Surgery, Nose Surgery, Throat Surgery, Abdominal Surgery, Nephrectomy, Neurologic Surgery or Organ Transplant Social History SMOKING STATUS: Former smoker Meds Home Medications and Allergies Home Medications ?Medication ?Instructions ?Recorded ?Confirmed ?Type diclofenac sodium 75 mg 75 mg PO DAILY 11/26/24 11/27/24 History tablet,delayed release ergocalciferol (vitamin D2) 1,250 1,250 mcg PO .weekly 11/26/24 11/27/24 History mcg (50,000 unit) capsule Allergies Allergy/AdvReac Type Severity Reaction Status Date / Time No Known Allergies Allergy Unknown Uncoded 11/26/24 08:03 Exam Vital Signs Temp Pulse Resp BP Pulse Ox O2 Del Method O2 Flow Rate 97.9 F 86 20 179/94 H 95 Room Air 3 11/28/24 18:15 11/28/24 18:15 11/28/24 18:15 11/28/24 18:15 11/28/24 18:15 11/28/24 15:51 11/27/24 21:14 Narrative Exam Physical examination revealed a shot but obese female who is 4 foot 11.8 inches tall weighing 205 pounds with BMI of 40.3 vital signs are very stable other than the elevated blood pressure of 179/94 Constitutional Constitutional: no acute distress Routine Abdominal Exam Comments: Abdomen showed fat folds due to her obesity. No tenderness elicited anywhere bowel sounds are normoactive Routine Rectal Exam Comments: Deferred due to the colonoscopy Results Results: Laboratory Laboratory Narrative: Patient's laboratory workup showed that her hemoglobin is dropped from around 13 g to about 7 g because of the blood loss.. Results: Imaging Imaging narrative: Patient underwent colonoscopy by Dr. After Harper and it showed extensive bleeding with the blood clots on the left side all the way up to the splenic flexure but no blood was seen on the right side. I reviewed the endoscopic pictures which clearly shows blood in the left colon but none in the right colon she has received 2 units of blood today Assessment & Plan Additional Assessment Additional comments: Impression: Lower GI bleeding probably due to diverticulosis of the descending colon and sigmoid colon Hypertension Diabetes Arthritis over the knees Plan Plan: The patient seemed to have stopped the bleeding since her admission on Sunday. She took GoLytely on Sunday and probably cleaned out some remaining blood. She has colonoscopy yesterday but no bleeding since. She has been stable. Hemoglobin level has dropped down significantly obviously because of bleeding on Sunday. I had a lengthy discussion with the patient about the pros and cons of operating on her to remove the left colon. It is most likely the source on the left colon as per Dr. Peoples and I agree with him that removal of the left colon may solve this problem. However the incidence of rebleeding is very high when isolated partial colectomy is performed for diverticular bleeding. The only way to confirm it either through the CT angiogram during active bleeding or mesenteric angiogram and then stop the bleeding. Afterwards the patient can have a segmental resection. Until then segmental resection has a failure rate. I do not know whether we can transfer the patient when she is bleeding actively. If we have to go blindly to remove a segment of the colon left hemicolectomy will be performed based on the endoscopic findings. Since the patient is stable for the past 48 hours I will watch her and see if she bleeds again. She may or may not bleed again. These options were given to the patient and she agrees with the present management of observation. Thank you very much
[2024-11-28 21:05] LABS: Basophils # (Auto) 0.1 Thou/mm3 (0.0-0.2); Basophils % (Auto) 1 % (0-2.5); Eosinophils # (Auto) 0.4 Thou/mm3 (0.0-0.5); Eosinophils % (Auto) 3 % (0-10); Hematocrit 33.1 % (36.0-46.0); Hemoglobin 11.5 g/dL (12.0-16.0); Immature Granulocytes % (Auto) 1 % (0-0); Immature Granulocytes Auto 0.07 Thou/mm3 (0.00-0.00); Lymphocytes # (Auto) 3.9 Thou/mm3 (1.0-4.8); Lymphocytes % (Auto) 31 % (10-50); Mean Corpuscular HGB Conc 34.7 g/dl (31.0-37.0); Mean Corpuscular Hemoglobin 30.8 pg (25.0-35.0); Mean Corpuscular Volume 89 fL (80-100); Monocytes # (Auto) 1.2 Thou/mm3 (0.0-0.8); Monocytes % (Auto) 10 % (0-12); Neutrophils # (Auto) 7.1 Thou/mm3 (1.8-7.7); Neutrophils % (Auto) 56 % (37-80); Nucleated Red Blood Cell % 0 /100 WBC (0); Platelet Count 186 Thou/mm3 (140-440); RDW Standard Deviation 48.4 fL (36.4-46.3); Red Blood Count 3.73 Miln/mm3 (4.00-5.20); White Blood Count 12.8 Thou/mm3 (3.6-11.0)
--- NOTE | 2024-11-28 23:24 | PC.NURSE ---
Dr. Corley called for update on H/H values, provided MD with results.
[2024-11-29] VITALS (13 sets, daily range): BP systolic 125–175; BP diastolic 64–91; PULSE 82–95; RESP 14–20; TEMP 36.1–36.6; O2SAT 94–98
[2024-11-29 06:15] LABS: Basophils % (Auto) 1 % (0-2.5); Eosinophils # (Auto) 0.3 Thou/mm3 (0.0-0.5); Eosinophils % (Auto) 5 % (0-10); Hematocrit 28.2 % (36.0-46.0); Hemoglobin 9.9 g/dL (12.0-16.0); Immature Granulocytes % (Auto) 1 % (0-0); Immature Granulocytes Auto 0.04 Thou/mm3 (0.00-0.00); Lymphocytes # (Auto) 1.7 Thou/mm3 (1.0-4.8); Lymphocytes % (Auto) 22 % (10-50); Mean Corpuscular HGB Conc 35.1 g/dl (31.0-37.0); Mean Corpuscular Hemoglobin 30.8 pg (25.0-35.0); Mean Corpuscular Volume 88 fL (80-100); Monocytes # (Auto) 0.8 Thou/mm3 (0.0-0.8); Monocytes % (Auto) 11 % (0-12); Neutrophils # (Auto) 4.5 Thou/mm3 (1.8-7.7); Neutrophils % (Auto) 61 % (37-80); Nucleated Red Blood Cell % 0 /100 WBC (0); Platelet Count 116 Thou/mm3 (140-440); RDW Standard Deviation 48.5 fL (36.4-46.3); Red Blood Count 3.21 Miln/mm3 (4.00-5.20); White Blood Count 7.4 Thou/mm3 (3.6-11.0)
[2024-11-29 06:32] LABS: Alanine Aminotransferase 80 U/L (10-49); Albumin, Serum 3.3 gm/dL (3.4-4.8); Albumin/Globulin Ratio 1.6 (1.2-2.2); Alkaline Phosphatase 81 U/L (46-116); Anion Gap 10 (7-16); Aspartate Amino Transferase 88 U/L (0-34); BUN/Creatinine Ratio 13 Ratio (12-20); Bilirubin,Total 1.3 mg/dL (0.3-1.2); Blood Urea Nitrogen 8 mg/dL (9-23); Calcium (Corrected) 8.6 mg/dL (8.5-10.1); Carbon Dioxide 25.1 mMol/L (20.0-31.0); Chloride 109 mMol/L (98-107); Creatinine (Component) 0.6 mg/dL (0.6-1.3); Estimated Creatinine Clearance 56.5 mL/min (>60); Globulin 2.1 gm/dL (2.3-3.5); Glucose 83 mg/dL (74-106); Osmolality,Calculated 284 (275-295); Potassium 3.5 mMol/L (3.4-5.1); Sodium 144 mMol/L (136-145); Total Protein 5.4 gm/dL (5.7-8.2); eGFR > 60 See Note
--- NOTE | 2024-11-29 09:30 | ESPR_ITS ---
Documentation for date of: 11/29/24 Subjective Subjective Brief History: Patient presents revealed the patient was in her usual health until last Sunday which was 3 days ago when she started having bloody bowel movement. She had frequent bloody bowel movements associated with clots and she came to the emergency room where she passed some more bloody bowel movements. She would say it is up to 7 or 8 bowel movements. She felt lightheaded but no history of any fainting. She never had any such bleeding in the past. She has had a colonoscopy in the past and was found to have some diverticulosis. She never has any history of diverticulitis. Patient's other medical problem consist of hypertension and severe osteoarthritis for which she is taking diclofenac. 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 Narrative: The patient has no further bleeding and she is feeling better and tolerating clear liquids Exam Vital Signs Temp Pulse Resp BP Pulse Ox O2 Del Method O2 Flow Rate 97.6 F 87 14 133/91 H 98 Room Air 3 11/29/24 08:00 11/29/24 08:00 11/29/24 08:00 11/29/24 08:00 11/29/24 08:00 11/29/24 08:00 11/29/24 00:00 Vital signs are normal Routine Abdominal Exam Comments: Abdominal examination is benign Results Results: Laboratory Laboratory Narrative: Laboratory results show hemoglobin around 9.9 g Assessment & Plan Assessment Additional comments: Impression: No evidence of bleeding at the present time even though she may rebleed anytime Plan Plan: I am deferring any surgical intervention at this time since majority of the diverticular bleeding stopped spontaneously. If she rebleeds we will consider surgical intervention.
[2024-11-29] MEDS: PANTOPRAZOLE INJ 40 MG VIAL IVP ×2 (10:00→20:08)
--- NOTE | 2024-11-29 10:28 | PD.NEPHPROG ---
Documentation for date of: 11/29/24 Subjective Subjective Interval history: 74 y/o F with PMHx significant for osteoarthritis on diclofenac, untreated diabetes, untreated hypertension who presented to [facility] with a chief complaint of bright red blood per rectum. Patient states she began to have bowel movements that were soft and with significant amount of blood in the toilet bowl. Patient states that on the way to the emergency department she did have some lightheadedness but did not pass out or develop shortness of breath. Patient denies any ingestion of undercooked meats, abdominal pain, nausea vomiting, any family history of colon cancer, unexpected weight loss, chest pain, headache, or any other associated symptoms. She has experienced early satiety and decreased appetite but has not had significant weight loss. She endorses taking diclofenac 1-2 times daily for arthritis and has recently been prescribed vitamin D for mentation. Patient has remote history of colonoscopy more than 10 years prior at which point she was found to have a single diverticuli but no history of polyps. Patient denies any smoking history or history of GERD. ED vitals: BP 186/116, pulse 120, RR 18, temp afebrile, O2 sat 96 on room air ED labs: WBC 10.8, hemoglobin 13.4, BUN 27, creatinine 1.4, GFR 40, glucose 112, alk phos 144. U/A: Turbid, 1+ protein, 1+ ketones, 1+ blood and 4+ calcium oxalate crystals. ED management: None Ed Imaging: None Patient seen and examined at bedside, resting comfortably. Patient reports recently had significant bowel movements without bloody stool, confirmed by nurse. Denies fevers, chills, chest pain, shortness of breath, abdominal pain, fatigue. WBC 10.2, hemoglobin downtrending from 11.8-10.3. Sodium 144, potassium 3.8, bicarb 21.9, BUN 31, creatinine 0.9, EGFR greater than 60. Gave patient 1 L fluid bolus, will closely monitor hemoglobin. Patient taking GoLytely prep anticipation colonoscopy. GI consulted. Took over care from hospitalist team. 11/27/2024: Patient seen and examined sitting in chair, resting comfortably. Reports feeling well overall. Still passing blood clots in otherwise clear stool. Planning for colonoscopy today. Hg decreased to 8.4. Closely monitoring, will transfuse 2 units if decreased below 8.0. WBC 9.2, sodium 143, potassium 3.6, bicarb 23.6, BUN 20, creatinine 0.6, eGFR >60. Albumin decreased from 3.8 to 3.2. Continue IVF. Gave Flexaril x1 for back pain. 11/28/2024 patient currently seen in medical floor. Resting comfortably. Hemoglobin significantly decreased. Will transfuse 2 units of blood. No myrtle bleeding. Colonoscopy showed extensive left diverticulosis with bleed. Dr. Peoples recommended surgical consult. Dr. Dr. Corley was called. Did not think patient needs emergency surgery. Watchful waiting. 11/29/2024 patient currently seen in medical floor. She had 1 small bowel movement with minimal bleeding. Discharge held. Spoke to Dr. Dr. Corley-no need for any surgical intervention. Dr. Peoples recommended discharge if clinically stable tomorrow. H&H stable. Review of Systems Review of Systems Narrative Review of Systems: CONSTITUTIONAL: Patient denies any fever, chills. HEENT: Denies any visual disturbances or hearing problems. CARDIOVASCULAR: Patient denies any chest pain, shortness of breath, swelling in the lower extremities. PULMONARY: Patient denies any shortness of breath, cough. GASTROINTESTINAL: Patient denies any abdominal pain, constipation, nausea, vomiting, diarrhea. + Blood in stools GENITOURINARY: Patient denies any urinary symptoms of burning or frequency or hematuria, denies any form in the urine. SKIN: Denies any rash. MUSCULOSKELETAL: Denies any muscular skeletal problems of joint pains. NEUROLOGICAL: Denies any neurological problems of strokes, seizures or confusion. Denies any memory problems. PSYCHIATRIC: Denies any depression or anxiety. LYMPHATICS : No lymphadenopathy Exam Vital Signs Temp Pulse Resp BP Pulse Ox O2 Del Method O2 Flow Rate 36.5 C 88 17 171/87 H 97 Room Air 3 11/29/24 19:44 11/29/24 20:08 11/29/24 19:44 11/29/24 20:08 11/29/24 19:44 11/29/24 19:44 11/29/24 00:00 Narrative Exam GENERAL APPEARANCE: Patient seems to be comfortable, adequately hydrated and nourished. HEENT: EOMI, PERRLA NECK: Neck supple, no JVD or bruit CARDIOVASCULAR: Heart regular, no murmurs LUNGS/CHEST: Chest clear to auscultation. No rales, rhonchi, wheezing ABDOMEN: Soft, nontender, nondistended. No masses. Normal bowel sounds. EXTREMITIES: No edema, clubbing or cyanosis. SKIN: Skin exam normal without any rashes MUSCULOSKELETAL: Musculoskeletal exam normal PSYCHIATRIC: Normal mood, affect LYMPHATICS: No lymphadenopathy noted NEUROLOGICAL : No neurological deficits Objective Labs 11/29/24 15:58 11/29/24 05:14 Labs: Laboratory Results - last 24 hr 11/29/24 11/29/24 05:14 15:58 WBC 7.4 D 8.3 RBC 3.21 L 3.42 L Hgb 9.9 L 10.4 L Hct 28.2 L 30.4 L MCV 88 89 MCH 30.8 30.4 MCHC 35.1 34.2 RDW Std Deviation 48.5 H 47.9 H Plt Count 116 L D 164 D Neut % (Auto) 61 65 Lymph % (Auto) 22 21 [place] % (Auto) 11 10 Eos % (Auto) 5 4 Baso % (Auto) 1 1 Neut # (Auto) 4.5 5.4 Lymph # (Auto) 1.7 1.7 [place] # (Auto) 0.8 0.8 Eos # (Auto) 0.3 0.3 Baso # (Auto) 0.0 0.0 Immature Gran # (Auto) 0.04 H 0.04 H Absolute Nucleated RBC 0.00 0.00 Immature Gran % 1 H 1 H Nucleated RBC % 0 0 Sodium 144 Potassium 3.5 Chloride 109 H Carbon Dioxide 25.1 Anion Gap 10 BUN 8 L Creatinine 0.6 Estim Creat Clear Calc 56.5 L eGFR > 60 BUN/Creatinine Ratio 13 Glucose 83 Calculated Osmolality 284 Calcium 8.0 L Corrected Calcium 8.6 Total Bilirubin 1.3 H D AST 88 H ALT 80 H Alkaline Phosphatase 81 Total Protein 5.4 L Albumin 3.3 L Globulin 2.1 L Albumin/Globulin Ratio 1.6 Assessment & Plan Additional Assessment & Plan Additional Plan: 74 y/o F with PMHx significant for osteoarthritis on diclofenac, untreated diabetes, untreated hypertension who presented to [facility] with a chief complaint of bright red blood per rectum #Lower GI bleed #Acute anemia Patient presented with complaint of hematochezia. Patient has a history of using diclofenac daily for osteoarthritis. No history of straining or difficulty with bowel movements. No previous history of internal hemorrhoids. Remote history of colonoscopy more than 10 years prior. No alarm symptoms: Mild early satiety. Hemoglobin downtrending, will monitor closely. Status post colonoscopy with extensive diverticulosis and diverticular bleed. Surgical consultation with Dr. Corley recommended. Per Dr. Dr. Corley-no need for emergency surgery. -SCDs for DVT prophylaxis -Hold NSAIDs in the setting of GI bleed status post 2 units of transfusion yesterday. Hemoglobin stable. Still having mild bleeding per rectum. Will monitor closely and if stable will plan for discharge tomorrow #LLOYD, improving Likely prerenal in the setting of GI losses. BUN elevated out of proportion, likely secondary to digested blood. Creatinine normalized #Hypertension History of hypertension that is currently untreated -Hydralazine as needed for systolic blood pressure over 180 DVT prophylaxis: SCDs GI prophylaxis: Protonix 40 IV daily Diet: Advance diet Lines: Peripheral IVs CODE STATUS: Full code
[2024-11-29] MEDS: hydrALAZINE HCL 25 MG TABLET 50 MG PO ×2 (12:16→20:08)
[2024-11-29 17:08] LABS: Basophils % (Auto) 1 % (0-2.5); Eosinophils # (Auto) 0.3 Thou/mm3 (0.0-0.5); Eosinophils % (Auto) 4 % (0-10); Hematocrit 30.4 % (36.0-46.0); Hemoglobin 10.4 g/dL (12.0-16.0); Immature Granulocytes % (Auto) 1 % (0-0); Immature Granulocytes Auto 0.04 Thou/mm3 (0.00-0.00); Lymphocytes # (Auto) 1.7 Thou/mm3 (1.0-4.8); Lymphocytes % (Auto) 21 % (10-50); Mean Corpuscular HGB Conc 34.2 g/dl (31.0-37.0); Mean Corpuscular Hemoglobin 30.4 pg (25.0-35.0); Mean Corpuscular Volume 89 fL (80-100); Monocytes # (Auto) 0.8 Thou/mm3 (0.0-0.8); Monocytes % (Auto) 10 % (0-12); Neutrophils # (Auto) 5.4 Thou/mm3 (1.8-7.7); Neutrophils % (Auto) 65 % (37-80); Nucleated Red Blood Cell % 0 /100 WBC (0); Platelet Count 164 Thou/mm3 (140-440); RDW Standard Deviation 47.9 fL (36.4-46.3); Red Blood Count 3.42 Miln/mm3 (4.00-5.20); White Blood Count 8.3 Thou/mm3 (3.6-11.0)
--- NOTE | 2024-11-29 19:12 | ESPR_ITS ---
Documentation for date of: 11/29/24 Subjective Subjective Interval history: Small amount of blood hematochezia this morning Discharge put on hold Hemoglobin was 9.4 repeat hemoglobin is 10.4 No further bleeding Exam Vital Signs Temp Pulse Resp BP Pulse Ox O2 Del Method O2 Flow Rate 97.5 F 91 18 139/64 H 97 Room Air 3 11/29/24 16:00 11/29/24 16:00 11/29/24 16:00 11/29/24 16:00 11/29/24 16:00 11/29/24 16:00 11/29/24 00:00 Objective Labs 11/29/24 15:58 11/29/24 05:14 Labs: Laboratory Results - last 24 hr 11/28/24 11/29/24 11/29/24 20:12 05:14 15:58 WBC 12.8 H D 7.4 D 8.3 RBC 3.73 L 3.21 L 3.42 L Hgb 11.5 L D 9.9 L 10.4 L Hct 33.1 L D 28.2 L 30.4 L MCV 89 88 89 MCH 30.8 30.8 30.4 MCHC 34.7 35.1 34.2 RDW Std Deviation 48.4 H 48.5 H 47.9 H Plt Count 186 D 116 L D 164 D Neut % (Auto) 56 61 65 Lymph % (Auto) 31 22 21 [place] % (Auto) 10 11 10 Eos % (Auto) 3 5 4 Baso % (Auto) 1 1 1 Neut # (Auto) 7.1 4.5 5.4 Lymph # (Auto) 3.9 1.7 1.7 [place] # (Auto) 1.2 H 0.8 0.8 Eos # (Auto) 0.4 0.3 0.3 Baso # (Auto) 0.1 0.0 0.0 Immature Gran # (Auto) 0.07 H 0.04 H 0.04 H Absolute Nucleated RBC 0.00 0.00 0.00 Immature Gran % 1 H 1 H 1 H Nucleated RBC % 0 0 0 Sodium 144 Potassium 3.5 Chloride 109 H Carbon Dioxide 25.1 Anion Gap 10 BUN 8 L Creatinine 0.6 Estim Creat Clear Calc 56.5 L eGFR > 60 BUN/Creatinine Ratio 13 Glucose 83 Calculated Osmolality 284 Calcium 8.0 L Corrected Calcium 8.6 Total Bilirubin 1.3 H D AST 88 H ALT 80 H Alkaline Phosphatase 81 Total Protein 5.4 L Albumin 3.3 L Globulin 2.1 L Albumin/Globulin Ratio 1.6 Impressions Impression: Left-sided diverticular bleed Repeat CBC in the morning If stable and no further bleeding patient can be discharged home Assessment & Plan Time Spent With Patient Time: Total time spent is greater than 50% in coordination of care (as documented) at patient's floor/unit and/or counseling patient:
[2024-11-30] VITALS (7 sets, daily range): BP systolic 156–166; BP diastolic 67–89; PULSE 68–95; RESP 15–20; TEMP 36.1–36.7; O2SAT 94–97
[2024-11-30] MEDS: METOPROLOL SUCCINATE XL 25 MG TABCR 50 MG PO ×2 (01:21→09:16)
--- NOTE | 2024-11-30 01:24 | PC.NURSE ---
Late administration of patient's metoprolol due to nurse already having gave patient's scheduled medication before 1999'. Order was put in at 2130.
[2024-11-30 05:31] LABS: Basophils # (Auto) 0.1 Thou/mm3 (0.0-0.2); Basophils % (Auto) 1 % (0-2.5); Eosinophils # (Auto) 0.3 Thou/mm3 (0.0-0.5); Eosinophils % (Auto) 4 % (0-10); Hematocrit 29.2 % (36.0-46.0); Immature Granulocytes % (Auto) 0 % (0-0); Immature Granulocytes Auto 0.03 Thou/mm3 (0.00-0.00); Lymphocytes # (Auto) 1.6 Thou/mm3 (1.0-4.8); Lymphocytes % (Auto) 18 % (10-50); Mean Corpuscular HGB Conc 34.2 g/dl (31.0-37.0); Mean Corpuscular Hemoglobin 30.6 pg (25.0-35.0); Mean Corpuscular Volume 89 fL (80-100); Monocytes # (Auto) 0.9 Thou/mm3 (0.0-0.8); Monocytes % (Auto) 10 % (0-12); Neutrophils # (Auto) 5.9 Thou/mm3 (1.8-7.7); Neutrophils % (Auto) 68 % (37-80); Nucleated Red Blood Cell % 0 /100 WBC (0); Platelet Count 165 Thou/mm3 (140-440); RDW Standard Deviation 47.4 fL (36.4-46.3); Red Blood Count 3.27 Miln/mm3 (4.00-5.20); White Blood Count 8.8 Thou/mm3 (3.6-11.0)
[2024-11-30 06:00] LABS: Alanine Aminotransferase 118 U/L (10-49); Albumin, Serum 3.5 gm/dL (3.4-4.8); Albumin/Globulin Ratio 1.6 (1.2-2.2); Alkaline Phosphatase 92 U/L (46-116); Anion Gap 11 (7-16); Aspartate Amino Transferase 90 U/L (0-34); BUN/Creatinine Ratio 12 Ratio (12-20); Bilirubin,Total 1.4 mg/dL (0.3-1.2); Blood Urea Nitrogen 7 mg/dL (9-23); Calcium 8.9 mg/dL (8.3-10.6); Calcium (Corrected) 9.3 mg/dL (8.5-10.1); Carbon Dioxide 24.9 mMol/L (20.0-31.0); Chloride 105 mMol/L (98-107); Creatinine (Component) 0.6 mg/dL (0.6-1.3); Estimated Creatinine Clearance 56.5 mL/min (>60); Globulin 2.2 gm/dL (2.3-3.5); Glucose 88 mg/dL (74-106); Osmolality,Calculated 278 (275-295); Potassium 3.8 mMol/L (3.4-5.1); Sodium 141 mMol/L (136-145); Total Protein 5.7 gm/dL (5.7-8.2); eGFR > 60 See Note
[2024-11-30] MEDS: hydrALAZINE HCL 25 MG TABLET 50 MG PO (09:16)
[2024-11-30] MEDS: PANTOPRAZOLE INJ 40 MG VIAL IVP (09:16)
--- NOTE | 2024-11-30 09:47 | PD.IMPROG ---
Documentation for date of: 11/30/24 Subjective Subjective Interval history: Doing much better. Okay to discharge home Exam Vital Signs Temp Pulse Resp BP Pulse Ox O2 Del Method O2 Flow Rate 97.1 F 72 15 166/72 H 97 Room Air 3 11/30/24 08:00 11/30/24 09:16 11/30/24 08:00 11/30/24 09:16 11/30/24 08:00 11/30/24 08:00 11/29/24 00:00 Objective Labs 11/30/24 05:01 11/30/24 05:01 Labs: Laboratory Results - last 24 hr 11/29/24 11/30/24 15:58 05:01 WBC 8.3 8.8 RBC 3.42 L 3.27 L Hgb 10.4 L 10.0 L Hct 30.4 L 29.2 L MCV 89 89 MCH 30.4 30.6 MCHC 34.2 34.2 RDW Std Deviation 47.9 H 47.4 H Plt Count 164 D 165 Neut % (Auto) 65 68 Lymph % (Auto) 21 18 [place] % (Auto) 10 10 Eos % (Auto) 4 4 Baso % (Auto) 1 1 Neut # (Auto) 5.4 5.9 Lymph # (Auto) 1.7 1.6 [place] # (Auto) 0.8 0.9 H Eos # (Auto) 0.3 0.3 Baso # (Auto) 0.0 0.1 Immature Gran # (Auto) 0.04 H 0.03 H Absolute Nucleated RBC 0.00 0.00 Immature Gran % 1 H 0 Nucleated RBC % 0 0 Sodium 141 Potassium 3.8 Chloride 105 Carbon Dioxide 24.9 Anion Gap 11 BUN 7 L Creatinine 0.6 Estim Creat Clear Calc 56.5 L eGFR > 60 BUN/Creatinine Ratio 12 Glucose 88 Calculated Osmolality 278 Calcium 8.9 Corrected Calcium 9.3 Total Bilirubin 1.4 H AST 90 H ALT 118 H Alkaline Phosphatase 92 Total Protein 5.7 Albumin 3.5 Globulin 2.2 L Albumin/Globulin Ratio 1.6 Impressions Impression: Diverticular bleed stable okay to discharge patient home Assessment & Plan Time Spent With Patient Time: Total time spent is greater than 50% in coordination of care (as documented) at patient's floor/unit and/or counseling patient:
--- NOTE | 2024-11-30 16:23 | PC.SS ---
SS met with pt who is alert and oriented x4; provided information on medicare
--- NOTE | 2024-11-30 17:13 | PD.NEPHDC ---
Planned Discharge Date 11/30/24 DS: Providers Provider Date of admission: 11/26/24 08:22 Primary care physician: Physician No Primary/Family Admitting Provider: Michael Pulliam MD Attending Provider on Admission: Michael Pulliam MD Consults: 11/26/24 03:26 Consult to Gastroenterology Stat Comment: Consulting Provider: Quintin Peoples Consult to Nephrology Stat Comment: Dr. Quach PCP patient Consulting Provider: Abdelrahman Quach Attending Provider on DC: Abdelrahman Quach MD Discharging Provider: Abdelrahman Quach MD Discharge Diagnosis Discharge Diagnosis (1) Lower GI bleed: Status: Acute Assessment & Plan: #Lower GI bleed #Acute anemia Patient presented with complaint of hematochezia. Patient has a history of using diclofenac daily for osteoarthritis. No history of straining or difficulty with bowel movements. No previous history of internal hemorrhoids. Remote history of colonoscopy more than 10 years prior. No alarm symptoms: Mild early satiety. Hemoglobin downtrending, will monitor closely. Status post colonoscopy with extensive diverticulosis and diverticular bleed. Surgical consultation with Dr. Corley recommended. Per Dr. Dr. Corley-no need for emergency surgery. status post 2 units of transfusion .Hemoglobin stable. plan for discharge today #LLOYD, improving Likely prerenal in the setting of GI losses. BUN elevated out of proportion, likely secondary to digested blood. Creatinine normalized #Hypertension History of hypertension that is currently untreated -Hydralazine, metoprolol (2) Acute renal failure (ARF): Status: Acute Problem List Completed Was Problem List Reviewed/Reconciled?: Yes Hospital Course Hospital Course Hospital course: 74 y/o F with PMHx significant for osteoarthritis on diclofenac, untreated diabetes, untreated hypertension who presented to [facility] with a chief complaint of bright red blood per rectum. Patient states she began to have bowel movements that were soft and with significant amount of blood in the toilet bowl. Patient states that on the way to the emergency department she did have some lightheadedness but did not pass out or develop shortness of breath. Patient denies any ingestion of undercooked meats, abdominal pain, nausea vomiting, any family history of colon cancer, unexpected weight loss, chest pain, headache, or any other associated symptoms. She has experienced early satiety and decreased appetite but has not had significant weight loss. She endorses taking diclofenac 1-2 times daily for arthritis and has recently been prescribed vitamin D for mentation. Patient has remote history of colonoscopy more than 10 years prior at which point she was found to have a single diverticuli but no history of polyps. Patient denies any smoking history or history of GERD. ED vitals: BP 186/116, pulse 120, RR 18, temp afebrile, O2 sat 96 on room air ED labs: WBC 10.8, hemoglobin 13.4, BUN 27, creatinine 1.4, GFR 40, glucose 112, alk phos 144. U/A: Turbid, 1+ protein, 1+ ketones, 1+ blood and 4+ calcium oxalate crystals. ED management: None Ed Imaging: None Patient seen and examined at bedside, resting comfortably. Patient reports recently had significant bowel movements without bloody stool, confirmed by nurse. Denies fevers, chills, chest pain, shortness of breath, abdominal pain, fatigue. WBC 10.2, hemoglobin downtrending from 11.8-10.3. Sodium 144, potassium 3.8, bicarb 21.9, BUN 31, creatinine 0.9, EGFR greater than 60. Gave patient 1 L fluid bolus, will closely monitor hemoglobin. Patient taking GoLytely prep anticipation colonoscopy. GI consulted. Took over care from hospitalist team. 11/27/2024: Patient seen and examined sitting in chair, resting comfortably. Reports feeling well overall. Still passing blood clots in otherwise clear stool. Planning for colonoscopy today. Hg decreased to 8.4. Closely monitoring, will transfuse 2 units if decreased below 8.0. WBC 9.2, sodium 143, potassium 3.6, bicarb 23.6, BUN 20, creatinine 0.6, eGFR >60. Albumin decreased from 3.8 to 3.2. Continue IVF. Gave Flexaril x1 for back pain. 11/28/2024 patient currently seen in medical floor. Resting comfortably. Hemoglobin significantly decreased. Will transfuse 2 units of blood. No myrtle bleeding. Colonoscopy showed extensive left diverticulosis with bleed. Dr. Peoples recommended surgical consult. Dr. Dr. Corley was called. Did not think patient needs emergency surgery. Watchful waiting. 11/29/2024 patient currently seen in medical floor. She had 1 small bowel movement with minimal bleeding. Discharge held. Spoke to Dr. Dr. Corley-no need for any surgical intervention. Dr. Peoples recommended discharge if clinically stable tomorrow. H&H stable. 11/30/2024 Patient going to seen medical floor. Sister, niece at bedside. No active GI bleed. Hemoglobin stable. Will discharge her today. Blood pressure acceptable on hydralazine and metoprolol Status at Discharge Cognitive/behavioral status at discharge: Stable Functional status at discharge: independent ambulation Time Spent with Patient Time attestation: Total time spent providing and/or coordinating discharge services: 35 minutes Exam Vital Signs Temp Pulse Resp BP Pulse Ox O2 Del Method O2 Flow Rate 36.6 C 94 19 175/90 H 98 Room Air 3 11/29/24 12:00 11/29/24 12:16 11/29/24 12:00 11/29/24 12:16 11/29/24 12:00 11/29/24 12:00 11/29/24 00:00 Narrative Exam GENERAL APPEARANCE: Patient seems to be comfortable, adequately hydrated and nourished. HEENT: EOMI, PERRLA NECK: Neck supple, no JVD or bruit CARDIOVASCULAR: Heart regular, no murmurs LUNGS/CHEST: Chest clear to auscultation. No rales, rhonchi, wheezing ABDOMEN: Soft, nontender, nondistended. No masses. Normal bowel sounds. EXTREMITIES: No edema, clubbing or cyanosis. SKIN: Skin exam normal without any rashes MUSCULOSKELETAL: Musculoskeletal exam normal PSYCHIATRIC: Normal mood, affect LYMPHATICS: No lymphadenopathy noted NEUROLOGICAL : No neurological deficits Discharge Plan Plan Patient Disposition: HOME (Self Care) Patient condition on transfer: Stable Prescriptions/Referrals Prescriptions/Med Rec: New hydralazine 25 mg Tablet 50 mg PO BID Qty: 60 0RF docusate sodium [Colace] 100 mg capsule 100 mg PO QDAY Qty: 30 0RF metoprolol succinate 25 mg Tablet Extended Release 24 Hr 50 mg PO QDAY Qty: 30 0RF Discontinued ergocalciferol (vitamin D2) 1,250 mcg (50,000 unit) capsule 1,250 mcg PO .weekly Patient Comments: taking once a week on diclofenac sodium 75 mg tablet,delayed release (DR/EC) 75 mg PO DAILY Patient Comments: TAKE 1 TABLET BY MOUTH ONCE DAILY Referrals: No Primary/Family,Physician [Primary Care Provider] - Patient/Caregiver Discharge Instructions Discharge Activity: activity as tolerated Education Materials: Low-Fiber Diet, Diverticulosis Diverticulitis, Eating a High-Fiber Diet, Discharge Instructions for ... Print Language: Latvian Activity Restrictions/Additional Instructions: follow up with dr. quach in 1-2 weeks Stand Alone Forms: [employer] Award Info., Patient Portal Info Letter Discharge Order Discharge Orders: Discharge (Routine); Ordered 11/30/24 Ordered By: Abdelrahman Quach
== END 2024-11-30 18:26 | disposition home or self-care (01) | DRG 378 ==
LOC: SERX 11-26 02:52 → SERHOLD 11-26 04:11 → S3SX 11-26 09:43 → SERHOLD 11-26 12:03
PROVIDERS: Internal Medicine; Nurse Practitioner Family; Specialist; Student in an Organized Health Care Education/Training Program; Surgery; Admitting Provider Internal Medicine; Emergency Provider Emergency Medicine; Visit Provider Internal Medicine
PROC: 0DJD8ZZ Inspection of Lower Intestinal Tract, Via Natural or Artificial Opening Endoscopic (ICD-10-PCS; CPT 45378; principal; 2024-11-27 19:30)
DX: K57.31 Diverticulosis of large intestine without perforation or abscess with bleeding (principal); D62 Acute posthemorrhagic anemia; N17.9 Acute kidney failure, unspecified; M19.90 Unspecified osteoarthritis, unspecified site; K64.9 Unspecified hemorrhoids; E11.9 Type 2 diabetes mellitus without complications; I10 Essential (primary) hypertension; R68.81 Early satiety; E78.5 Hyperlipidemia, unspecified; Z87.891 Personal history of nicotine dependence; Z79.899 Other long term (current) drug therapy
CPT/HCPCS: 36415; 80053; 81001; 83036; 83690; 83735; 84100; 84443; 85014; 85018; 85025; 85610; 85730; 86850; 86900; 86901; 86923; 93225; 96360; 96374; 99285; J1200; J2250; J2470; J3010; J7050; J7120; P9016; Q0138; A9270

== ENCOUNTER → 2025-04-07 | Outpatient (CLI) | payer MEDICARE, SELFPAY ==
[2025-04-07 11:07] LABS: Collection Type, Urine Clean Catch
[2025-04-07 11:28] LABS: Basophils # (Auto) 0.0 Thou/mm3 (0.0-0.2); Basophils % (Auto) 1 % (0-2.5); Eosinophils # (Auto) 0.3 Thou/mm3 (0.0-0.5); Eosinophils % (Auto) 3 % (0-10); Hematocrit 44.1 % (36.0-46.0); Hemoglobin 14.2 g/dL (12.0-16.0); Immature Granulocytes Auto 0.03 Thou/mm3 (0.00-0.00); Lymphocytes # (Auto) 1.8 Thou/mm3 (1.0-4.8); Lymphocytes % (Auto) 23 % (10-50); Mean Corpuscular HGB Conc 32.2 g/dl (31.0-37.0); Mean Corpuscular Hemoglobin 28.1 pg (25.0-35.0); Mean Corpuscular Volume 87 fL (80-100); Monocytes # (Auto) 0.7 Thou/mm3 (0.0-0.8); Monocytes % (Auto) 9 % (0-12); Neutrophils # (Auto) 4.9 Thou/mm3 (1.8-7.7); Neutrophils % (Auto) 63 % (37-80); Nucleated Red Blood Cell # 0.00 Thou/mm3 (0.00-0.00); Nucleated Red Blood Cell % 0 /100 WBC (0); Platelet Count 216 Thou/mm3 (140-440); RDW Standard Deviation 46.8 fL (36.4-46.3); Red Blood Count 5.05 Miln/mm3 (4.00-5.20); White Blood Count 7.8 Thou/mm3 (3.6-11.0)
[2025-04-07 11:30] LABS: Bilirubin,Urine Negative (Negative); Blood,Urine Negative (Negative); Clarity,Urine Clear (Clear/Hazy); Color,Urine Lt-Yellow (Lt Yel-Yel); Glucose, Urine Negative (Negative); Hyaline Casts,Urine < 1 /hpf (0-1); Ketones,Urine Negative (Negative); Leukocyte Esterase,Urine Negative (Negative); Nitrite,Urine Negative (Negative); PH,Urine 6.0 (5.0-7.0); Protein,Urine Trace (Neg - Trace); RBC,Urine 2 /hpf (0-3); Specific Gravity,Urine 1.023 (1.001-1.035); Squamous Epithelial Cell,Urine 4 /hpf (0-5); Urobilinogen,Urine Negative mg/dL (0.0-1.0); WBC,Urine 2 /hpf (0-5)
[2025-04-07 11:38] LABS: Glucose Estimated Average 120 mg/dL (80-131); Hemoglobin A1C 5.8 % Hgb (4.8-6.0)
[2025-04-07 11:45] LABS: Follicle Stimulating Hormone 39.04 mIU/mL (See Note); Vitamin B12 411 pg/mL (211-911); Vitamin D 25 Hydroxy Total 29.6 ng/mL (7.3-40.2)
[2025-04-07 11:50] LABS: Alanine Aminotransferase 15 U/L (10-49); Albumin, Serum 4.2 gm/dL (3.4-4.8); Albumin/Globulin Ratio 1.7 (1.2-2.2); Alkaline Phosphatase 99 U/L (46-116); Anion Gap 10 (7-16); Aspartate Amino Transferase 20 U/L (0-34); BUN/Creatinine Ratio 26 Ratio (12-20); Bilirubin,Total 0.6 mg/dL (0.3-1.2); Blood Urea Nitrogen 21 mg/dL (9-23); Calcium 9.7 mg/dL (8.3-10.6); Calcium (Corrected) 9.7 mg/dL (8.5-10.1); Carbon Dioxide 23.7 mMol/L (20.0-31.0); Cardiac Risk Estimate 3.9 RATIO (3.7-5.6); Chloride 109 mMol/L (98-107); Cholesterol 183 mg/dL (132-200); Creatinine (Component) 0.8 mg/dL (0.6-1.3); Globulin 2.5 gm/dL (2.3-3.5); Glucose 100 mg/dL (74-106); HDL Cholesterol 47 mg/dL (40-60); LDL Cholesterol,Calculated 111 mg/dL (0-130); Osmolality,Calculated 287 (275-295); Potassium 4.0 mMol/L (3.4-5.1); Sodium 143 mMol/L (136-145); Thyroid Stimulating Hormone 2.78 uIU/mL (0.55-4.78); Total Protein 6.7 gm/dL (5.7-8.2); Triglycerides 127 mg/dL (30-150); Uric Acid 6.3 mg/dL (3.1-7.8); eGFR > 60 See Note
[2025-04-14 06:26] LABS: Estrogen, Total, Serum* 63 pg/mL; Luteinizing Hormone* 23.2 mIU/mL; Progesterone,LC/MS* <0.1 ng/mL
== END | disposition home or self-care (01) ==
LOC: COPL 09:55
PROVIDERS: PCP Internal Medicine; Referring Provider Internal Medicine; Visit Provider Internal Medicine
DX: Z00.00 Encounter for general adult medical examination without abnormal findings (principal); I10 Essential (primary) hypertension; E78.5 Hyperlipidemia, unspecified; D51.9 Vitamin B12 deficiency anemia, unspecified; E55.9 Vitamin D deficiency, unspecified
CPT/HCPCS: 36415; 80053; 80061; 81001; 82306; 82607; 82672; 83001; 83002; 83036; 84144; 84443; 84550; 85025